=== PATIENT | female | born 1955 | race Caucasian/White ===

== ENCOUNTER 2017-01-14 16:26 | Inpatient (IN) | payer MEDICARE, OTHER ==
--- NOTE | ~2017-01-14 | HP ---
History And Physical [place] [id number] [place] [place]. [address] NAME: HA MAGUIRE : 59 STATUS : ADM IN [facility]#: [id number] AGE: 61 ADM/REG DATE : 01/14/17 MR#: [id number] REPORT SERV DATE: 01/15/17 DICTATED BY: FRANKIE PIPER DATE: 01/14/17 REPORT STATUS : Draft TRANSCRIBED BY: MODL DATE: 01/14/17 DATE OF ADMISSION: 01/14/2017 REASON FOR ADMISSION: Recent bleeding from right upper extremity AV graft today at dialysis and was unable to dialyze with leukocytosis from recent right lower extremity alaww-pzk-oser amputation stump infection. HISTORY OF PRESENT ILLNESS: Ha Maguire is a massively obese, chronically ill, 61-year-old female with multiple medical problems, in very poor health with very poor prognosis. She has been residing at the [facility] where she has been receiving dialysis via a right upper extremity AV graft. She had a right lower extremity above the knee amputation in December and had a postoperative stump infection. She was seen by Infectious Disease and was treated with seven days of meropenem as she had ESBL E. coli in the cultures. She was treated with a VAC pack by Surgery and sent to [facility]. Today, when she was attempting to dialyze, she had increased bleeding around the needles in her right upper extremity AV graft and they were unable to dialyze her there. She was sent to the emergency room here at [facility] where she is sedated, but able to answer questions. She denies any shortness of breath, chest pain, or abdominal pain. She has not had any access pain in her arm, but she has massive edema in her right upper extremity. She has been requiring blood transfusions of late because of persistent anemia. The patient has a VAC in her right lower extremity stump and it is tender to palpate. Her white blood cell count is 17. We have been asked to admit her because she is a dialysis patient. PAST MEDICAL HISTORY: 1. End-stage renal disease with right upper extremity AV graft. 2. Peripheral vascular disease, status post bilateral lower extremity vgark-whb-undt amputation. 3. Recent right lower extremity qbpbd-orl-tkxp amputation stump infection, treated with meropenem for seven days per Infectious Disease and has a VAC pack. 4. Chronic hypotension, on midodrine. 5. Morbid obesity with very poor health. 6. Chronic edema. 7. History of left femur fracture. 8. Longstanding type 2 diabetes mellitus, on insulin with diabetic neuropathy. 9. Obstructive sleep apnea. 10.Hypothyroidism. 11.Chronic pain syndrome with anxiety, on narcotics and benzodiazepines. 12.Right upper extremity fracture, status post surgery. 13.Finger amputations. 14.Previous history of C4 fracture, treated with a C-collar. 15.Previous history of subdural hemorrhage. 16.Gastroesophageal reflux disease. 17.Diabetic foot ulcers previously. 18.Hyperlipidemia. 19.Anemia requiring frequent transfusions of late. History And Physical [address] [address] NAME: HA MAGUIRE : 59 STATUS : ADM IN [facility]#: [id number] AGE: 61 ADM/REG DATE : 01/14/17 MR#: [id number] REPORT SERV DATE: 01/15/17 DICTATED BY: FRANKIE PIPER DATE: 01/14/17 REPORT STATUS : Draft TRANSCRIBED BY: ALEXIA DATE: 01/14/17 ALLERGIES: INCLUDE LISINOPRIL. SOCIAL HISTORY: She lives at [facility]. She does not smoke or drink. She is a full code. FAMILY HISTORY: Significant for diabetes and coronary artery disease. MEDICATIONS: At the [facility] include: 1. Alprazolam 1 mg each day. 2. Dulcolax 5 mg each day. 3. Vitamin D 5000 units each day. 4. Colace 100 mg twice a day. 5. Humalog insulin sliding scale. 6. Levothyroxine 200 mcg p.o. daily. 7. Nephro-Jason one p.o. daily. 8. Pantoprazole 40 mg p.o. b.i.d. 9. Sertraline 25 mg a day. 10.Zoloft 100 mg a day. 11.Midodrine 5 mg three times a day. 12.Oxycodone 40 mg long-acting once a day. 13.Ambien 5 mg at bedtime. 14.Amitiza 24 mcg p.o. twice a day. 15.Lactulose 30 mL as p.o. daily. 16.Gabapentin 300 mg twice a day. 17.Alprazolam 1 mg at bedtime. REVIEW OF SYSTEMS: All systems reviewed are negative except what is mentioned in the history of present illness, but history is limited due to her sedation. PHYSICAL EXAMINATION: VITAL SIGNS: Currently upon examination, she is afebrile, blood pressure 99/43, pulse 88, and respiratory rate 15. It should to be noted that she has chronic hypotension and [facility]. GENERAL: On examination, generally, she is massively obese, chronically ill, in no acute distress. HEENT: Eyes, pupils react bilaterally. No conjunctivitis. Oropharynx, mucous membranes are dry. She has no lesions. NECK: Supple. No thyromegaly. No mass. No meningeal signs. LYMPHADENOPATHY: No cervical, supraclavicular, or axillary lymphadenopathy. LUNGS: Clear to auscultation. No tachypnea. CARDIOVASCULAR: Regular rate and rhythm with a 2/6 systolic ejection murmur. No rub. She has 4+ edema to her right upper extremity. GASTROINTESTINAL: Positive bowel sounds. Morbidly obese. Nontender and nondistended with no hepatosplenomegaly. SKIN: She has chronic edema to the right upper extremity with chronic changes of edema. History And Physical [address] [place]. [address] NAME: HA MAGUIRE : 59 STATUS : ADM IN [facility]#: [id number] AGE: 61 ADM/REG DATE : 01/14/17 MR#: [id number] REPORT SERV DATE: 01/15/17 DICTATED BY: FRANKIE PIPER DATE: 01/14/17 REPORT STATUS : Draft TRANSCRIBED BY: ALEXIA DATE: 01/14/17 She has a right upper extremity AV graft with positive thrill and bruit. She has a VAC pack on her right lower extremity stump that is tender to palpate. PSYCHIATRIC: Her speech is soft. She is lethargic, but able to answer questions. She knows she is in the hospital. She knows the year. She knows her name. She can follow commands and squeeze to command. NEUROLOGIC: Cranial II through XII are intact. Sensation is grossly intact. DIAGNOSTIC DATA: Chest x-ray reviewed by me shows a left pleural effusion per my interpretation, reviewed by me. Her ABG; pH 7.44, pCO2 of 44, and PO2 of 59. Sodium 135, potassium 3.1, chloride 95, bicarb 31, BUN 21, creatinine 2.6, glucose 178, calcium 7.7, total protein 6.5, albumin 1.5, total bilirubin 2.5, alkaline phosphatase 147, ALT 11, and AST 12. Troponin less than 0.02. Acetaminophen level is less than 2. Salicylate level is 2.9. Beta natriuretic peptide 145. Lactate level is pending. White count 17, hemoglobin 7.8, hematocrit 24, and platelets 250. Blood cultures x2 have been drawn. INR 1.4. IMPRESSION: 1. Bleeding from right upper extremity AV graft today at dialysis. She has massive edema in the right upper extremity, appears to be a chronic problem. 2. Leukocytosis from right lower extremity strws-ozo-kcag amputation recently with recent stump infection, treated with meropenem per Infectious Disease recommendations with extended-spectrum beta-lactamases Escherichia coli at that time in cultures. 3. Severe hypoalbuminemia with albumin of 1.5. 4. Type 2 diabetes mellitus with complications of neuropathy, on insulin. 5. Chronic hypotension, on midodrine. 6. End-stage renal disease. 7. Anemia, requiring frequent blood transfusions. 8. Elevated total bilirubin, question cause. 9. Chronic pain and anxiety, on narcotics and benzodiazepines, and she is sedated now. PLAN AND RECOMMENDATION: 1. She is a full admit. 2. Check blood cultures, given empiric vancomycin and meropenem. 3. Infectious Disease evaluation with Dr. Sheridan. 4. Surgical evaluation of the right stump with Dr. Mujica. 5. Vascular Surgery evaluation with Dr. Hernandez for right upper extremity AV graft. 6. There is no need for dialysis tonight. 7. Accu-Cheks with insulin. 8. Hold narcotics and benzodiazepines with sedation. Her pCO2 is 44 on ABG. 9. Check abdominal ultrasound, haptoglobin and LDH with recent elevated total bilirubin. 10.Schedule midodrine 10 mg t.i.d. 11.She is a full admit. 12.She is chronically ill, in very poor health with long-term very poor prognosis. BH/MODL History And Physical [address] [place] [address] NAME: HA MAGUIRE : 59 STATUS : ADM IN PAT#: [id number] AGE: 61 ADM/REG DATE : 01/14/17 MR#: [id number] REPORT SERV DATE: 01/15/17 DICTATED BY: FRANKIE PIPER DATE: 01/14/17 REPORT STATUS : Draft TRANSCRIBED BY: MODL DATE: 01/14/17 Frankie Piper M.D. / [id number] CC: Kasi Dick M.D. Mandeep Grewal, M.D.
--- NOTE | ~2017-01-14 | CN ---
Consultation Report [facility] [address] [place]. [address] NAME: HA MAGUIRE : 59 STATUS : ADM IN PAT#: [id number] AGE: 61 ADM/REG DATE : 01/14/17 MR#: [id number] REPORT SERV DATE: 01/15/17 DICTATED BY: TONY HERNANDEZ DATE: 01/15/17 REPORT STATUS : Draft TRANSCRIBED BY: MODL DATE: 01/15/17 CONSULT DATE OF CONSULTATION: 01/14/2017 REASON FOR CONSULTATION: Evaluation for prolonged bleeding from right upper extremity AV fistula. BRIEF HISTORY: The patient is a 61-year-old female with past medical history significant for end-stage renal disease and morbid obesity, who has had several dialysis access procedures in the remote past. She has had multiple interventions by my partners, the nephrologists, and Dr. Villar. I was consulted for evaluation and treatment, as the patient came to the hospital with prolonged bleeding from her right upper extremity fistula. The patient describes a prolonged history of right upper extremity edema. She has had prolonged bleeding in the past. She has had interventions with Dr. Nur, the last of which was reportedly unsuccessful. She says that there was a blockage more centrally and there was some discussion as to whether she would need a transfemoral access to cross this lesion. The patient denies any other complaints. She was recently hospitalized for a right above- the-knee amputation stump infection. PAST MEDICAL HISTORY: End-stage renal disease, peripheral vascular disease, morbid obesity, chronic hypotension, left femur fracture, diabetes, obstructive sleep apnea, hypothyroidism, chronic pain, subdural hemorrhage, gastroesophageal reflux disease, hyperlipidemia, and anemia. PAST SURGICAL HISTORY: Includes right ljocu-iit-dmot amputation. She has had several finger amputations on her left hand. She has had multiple dialysis access procedures. SOCIAL HISTORY: She lives in [facility]. She denies any tobacco, alcohol, or drug use. ALLERGIES: LISINOPRIL. MEDICATIONS: Documented on the chart and were reviewed. FAMILY HISTORY: Diabetes and coronary artery disease. REVIEW OF SYSTEMS: A complete review of systems was performed and is negative with the exception of the aforementioned findings. PHYSICAL EXAMINATION: VITAL SIGNS: Documented on the chart and were reviewed. GENERAL: The patient is awake, alert, and oriented, in no apparent distress. HEAD AND NECK: Benign without any carotid bruits. Consultation Report [facility] [address] [place]. [address] NAME: HA MAGUIRE : 59 STATUS : ADM IN PAT#: [id number] AGE: 61 ADM/REG DATE : 01/14/17 MR#: [id number] REPORT SERV DATE: 01/15/17 DICTATED BY: TONY HERNANDEZ DATE: 01/15/17 REPORT STATUS : Draft TRANSCRIBED BY: MODL DATE: 01/15/17 HEART: Regular rate and rhythm. LUNGS: Coarse. ABDOMEN: Soft, nontender, nondistended, with a nonpalpable aorta. She is morbidly obese. EXTREMITIES: I am not sure that I can feel upper extremity pulses. She has morbid obesity with significant right upper extremity edema. She does not have any weeping. I think I can feel a thrill within her fistula. There is no active bleeding. Examination of the lower extremities reveals palpable femoral pulses. She has right uskqg-yyh-nhjl amputation stump. Her left lower extremity is edematous. NEUROLOGICAL: Grossly nonfocal, but she is somewhat somnolent. MUSCULOSKELETAL: Otherwise benign. LABORATORY INVESTIGATIONS: Reveal leukocytosis. She also has anemia. Her serum chemistry is consistent with her renal failure. ASSESSMENT AND PLAN: It looks like this lady has had a history of prolonged bleeding and she says a more central stenosis. She will need a fistulogram with possible intervention. We may have to use a transfemoral approach. I would like to avoid placing a PermCath. Once we get an idea of what her anatomy is, if we cannot fix it, we could potentially convert this access to a hybrid AV fistula and graft using a HeRO graft. The patient and her expressed understanding. We are getting this scheduled. CELESTE/ALEXIA Tony Hernandez M.D. / [id number] CC: Kasi Dick M.D.
--- NOTE | ~2017-01-14 | DS ---
Discharge Summary [facility] [address] [place]. [address] NAME: HA MAGUIRE : 59 STATUS : DIS IN PAT#: [id number] AGE: 61 ADM/REG DATE : 01/14/17 MR#: [id number] REPORT SERV DATE: 01/19/17 DICTATED BY: DAWIT SIMON DATE: 01/18/17 REPORT STATUS : Draft TRANSCRIBED BY: MODL DATE: 01/18/17 ADMISSION DATE: 01/14/2017 DISCHARGE DATE: 01/18/2017 INDICATION FOR HOSPITALIZATION: Bleeding from right upper extremity AV graft with leukocytosis from recent right lower extremity above knee amputation. DISCHARGE DIAGNOSES: 1. Bleeding from right upper extremity AV graft, status post fistulogram with angioplasty of right axillary vein, right subclavian vein, and right innominate vein by Dr. Hernandez on 11/19/2016. 2. Leukocytosis, evaluated by ID, no missael evidence of stump infection. Per surgeon Dr. Mujica, antibiotics discontinued after initial dosing with meropenem and vancomycin on 01/17/2017. She continues with wound VAC. 3. Chronic hypotension, on midodrine. 4. Peripheral vascular disease, status post bilateral lower extremity above knee amputations. 5. End-stage renal disease, dialyzing Saturday, Saturday, Saturday at [facility] via right upper extremity AV graft. 6. History of left femur fracture. 7. Long-standing type 2 diabetes mellitus. 8. Obstructive sleep apnea. 9. Hypothyroidism. 10.Chronic pain syndrome with anxiety requiring narcotics and benzodiazepines. 11.Right upper extremity fracture, status post surgery. 12.Digital amputations of fingers. 13.History of C4 fracture treated with C-collar. 14.Previous history of subdural hematoma. 15.Gastroesophageal reflux disease. 16.Hyperlipidemia. 17.Anemia, requiring frequent transfusions. HOSPITAL COURSE: Ms. Maguire is a 61-year-old female who resides at [facility] and actually dialyzes at [facility] nursing facility. She apparently had a recent right lower extremity AKA in December and there was a postop wound infection that is being followed in the past by infectious Disease and Dr. Mjuica of Surgery. She was admitted with Vac-Pac by Surgery. When attempting to dialyze, she had increased bleeding around the needles of her right upper extremity graft and they were unable to dialyze her. She was sent to the emergency room for admission. She was found to be sedated and unable to answer questions except that she was not short of breath, had no chest or abdominal pain. She has required multiple transfusions of late due to anemia. The patient was seen by Vascular Surgery and Dr. Hernandez performed a fistulogram of right upper extremity AV graft on 01/15/2017 with angioplasty of right axillary, right subclavian, right innominate veins. There was no additional bleeding post intervention. She was seen by Dr. Mujica and Vac-Pac was followed by him. In addition, she was seen by Infectious Discharge Summary [address] [place]. [address] NAME: HA MAGUIRE : 59 STATUS : DIS IN PAT#: [id number] AGE: 61 ADM/REG DATE : 01/14/17 MR#: [id number] REPORT SERV DATE: 01/19/17 DICTATED BY: DAWIT SIMON DATE: 01/18/17 REPORT STATUS : Draft TRANSCRIBED BY: ALEXIA DATE: 01/18/17 Disease, and upon reviewing the situation with Dr. Mujica and assessing clinical response, both vancomycin and meropenem were discontinued on 01/17/2017. She was felt stable for release back to [facility]. During the hospitalization, she was dialyzed on 01/16/2017, where she received 2 units of packed red blood cells for a hemoglobin of 6.7, and she was dialyzed again on 01/18/2017 with a hemoglobin of 9.1 at time of dialysis. She tolerated dialysis well and was eager to return. She will follow up on dialysis at [facility] as scheduled. She will follow up with Surgery and Infectious Disease as scheduled. She will follow up with Vascular Surgery as scheduled. DIET: Diet will be renal diet 2000 calorie ADA, 500 mL fluid restriction per day. ACTIVITY: Activity will be per [facility]. DISCHARGE MEDICATIONS: Dulcolax 5 mg two tablets twice daily; Colace 100 mg twice daily; insulin NovoLog sliding scale level 1, blood sugar 140-175 one unit, 176-200 two units, 201- 225 three units, 226-275 four units, 276-325 five units, 326-375 six units; lactulose 30 mL p.o. daily; Synthroid 100 mg two tablets before breakfast; Nephrocaps one daily; Protonix 40 mg before breakfast; Zoloft 100 mg daily; Xanax 1 mg twice daily p.r.n., hold for sedation; vitamin D 5000 units p.o. daily; OxyContin 40 mg extended release one tablet daily, hold for sedation; midodrine 10 mg p.o. t.i.d., hold for systolic greater than 155; Ambien 5 mg at bedtime; Neurontin 300 mg twice daily, hold for sedation; and oxycodone 15 mg 7.5 mg tablet q.12 p.r.n., hold for sedation. CADENCE/MODL Dawit Simon M.D. / [id number] CC: Kasi Dick MD
--- NOTE | ~2017-01-14 | OP ---
Record Of Operation [facility] [address] [place]. [address] NAME: HA MAGUIRE : 59 STATUS : ADM IN PAT#: [id number] AGE: 61 ADM/REG DATE : 01/14/17 MR#: [id number] REPORT SERV DATE: 01/15/17 DICTATED BY: TONY HERNANDEZ DATE: 01/15/17 REPORT STATUS : Draft TRANSCRIBED BY: MODJesse DATE: 01/15/17 DATE OF PROCEDURE: 01/15/2017 PREOPERATIVE DIAGNOSIS: 1. End-stage renal disease. 2. Right upper extremity edema. 3. Prolonged bleeding from the AV fistula. POSTOPERATIVE DIAGNOSES: 1. End-stage renal disease. 2. Right upper extremity edema. 3. Prolonged bleeding from the AV fistula. PROCEDURE: Right upper extremity fistulogram with percutaneous angioplasty of the right axillary vein, subclavian vein, and innominate vein. SURGEON: Tony Hernandez M.D. TOP TAPER MACHINE: None. ANESTHESIA: MAC plus local. INDICATIONS: The patient is a 61-year-old morbidly obese female with renal failure. She has had multiple interventions on her right upper extremity arteriovenous fistula. Now, she presents with prolonged bleeding and right upper extremity edema. Thus, she was consented for intervention. DESCRIPTION OF PROCEDURE: After informed consent was obtained, the patient was taken to the operating room and placed in the supine position on the operating table. Monitored anesthesia was administered. The patient's right upper extremity as well as groins were prepped and draped in the usual sterile fashion. Ultrasound-guided access was obtained of the right upper extremity AV fistula in an antegrade fashion. I obtained a fistulogram that demonstrated occlusion of the right axillary vein, subclavian vein, and innominate vein. More central flow was not visualized. I placed a sheath and crossed the occlusion. I obtained an angiogram with the catheter in the right innominate vein. This showed that the SVC was patent. I angioplastied the right axillary, subclavian, and innominate veins with a 6 mm balloon. While there was improvement, the balloon was clearly undersized. I used a 10 mm balloon to angioplasty the same regions. There was marked improvement with the exception of a spot just peripheral to a stent that was placed extending from the right subclavian vein into the innominate vein. Of note, this stent had jailed the right internal jugular vein. I used an 8 mm cutting balloon to angioplasty this region. I repeated angioplasty with a 10 mm balloon. There was improvement. There was still some residual stenosis, perhaps about 30%. I did not think that this spot was best served with the stent at this point. Thus, I withdrew my wire, catheter, and sheath and placed a stitch for hemostasis. The patient tolerated the procedure well without any intraprocedural complications. Record Of Operation [place] [id number] [facility] [address] [place] [address] NAME: HA MAGUIRE : 59 STATUS : ADM IN [facility]#: [id number] AGE: 61 ADM/REG DATE : 01/14/17 MR#: [id number] REPORT SERV DATE: 01/15/17 DICTATED BY: TONY HERNANDEZ DATE: 01/15/17 REPORT STATUS : Draft TRANSCRIBED BY: ALEXIA DATE: 01/15/17 CELESTE/ALEXIA Tony Hernandez M.D. / [id number] CC: Kasi Dick M.D.
[~2017-01-14 16:26] MED LIST: AMB10 PO; AMB5 PO; AMOXIL500 MG PO; ANTIBIOTICS; ARANESP60 IV; ASAB PO; ASABAYER PO; AURYXIA PO; BIST PO; BUM1 PO; COREG6 PO; D 5000 PO; DSS PO; HUMALOG SC; HUMALOGPEN SC; HYDRALAZINE100 MG PO; IRON325 MG PO; K-PHOS 500 MG500 MG PO; LANTUS SC; LEVEMFLXPN SC; LEVEMIR SC; LEVOTHYROXIN200 MCG PO; LORTAB10 PO; MICARDIS80 PO; NEPHRO-VITE PO; NEUR100 PO; NEUR300 PO; NORCO1 TAB PO; NORV10 PO; NORV5 PO; OXYCOD PO; OXYCON40 PO; PAX20 PO; PHOSLO PO; PR12.5 PO; PROAMAT5 PO; PROTONIX PO; RENAL SFTGLS1 MG OR; RENAL SFTGLS1 MG PO; RENVELA800 MG PO; REQUIP1 PO; ROXICODONE15 MG PO; SANTYL250 MG/GM TOP; SAVELLA50 MG PO; SEVELLA PO; SYNTHROID200 MCG PO; TORSEMIDE PO; VITAMIN C100 MG PO; VITAMIN D31000 UNIT PO; XANAX1 MG PO; Z100 PO; ZANTAC150 MG PO; ZOLOFT25 MG PO
[2017-01-14 16:31] LABS: BASOPHILS 0.4 %; BASOPHILS ABSOLUTE 0.07 10/3/uL (0.0-0.16); EOSINOPHILS 0.9 %; EOSINOPHILS ABSOLUTE 0.16 10/3/uL (0.0-0.53); ER CBC TAT 0 Hrs 03 Mins; HEMATOCRIT 24.7 % (36.0-48.0); HEMOGLOBIN 7.8 g/dL (12.0-16.0); IMMATURE GRANULOCYTES 0.5 %; IMMATURE GRANULOCYTES ABSOLUTE 0.09 10/3/uL (0.0-0.11); LYMPHOCYTES 5.9 %; LYMPHOCYTES ABSOLUTE 1.02 10/3/uL (0.67-4.30); MEAN CORPUS HGB CONC 31.6 g/dL (32.0-36.0); MEAN PLATELET VOLUME 8.4 fL (9.2-13.0); MONOCYTES 2.9 %; MONOCYTES ABSOLUTE 0.51 10/3/uL (0.21-1.20); NEUTROPHILS 89.4 %; NEUTROPHILS ABSOLUTE 15.53 10/3/uL (2.02-8.40); PLATELET COUNT 250 10/3/uL (150-400); RBC DISTRIBUTION WIDTH 22.7 % (12.0-16.0); RED CELL COUNT 2.52 10/6/uL (4.0-5.6); WHITE BLOOD CELLS 17.4 10/3/uL (4.5-10.5)
[2017-01-14 16:33] LABS: MANUAL DIFF NO %
[2017-01-14 16:38] LABS: INTERNATIONAL NORMAL RATI 1.4 UNITS (-); PROTIME (NOT ORD) 17.1 SEC (12.0-14.5)
[2017-01-14 16:39] LABS: PARTIAL THROMBO TIME 50.1 SEC (22.5-37.2)
[2017-01-14 16:47] LABS: A/G RATIO 0.3 (0.7-1.9); ACETAMINOPHEN LEVEL (TYLENOL) < 2.0 MCG/ML (10.0-20.0); ALBUMIN 1.5 G/DL (3.5-5.0); ALCOHOL < 10 MG/DL (0); ALKALINE PHOSPHATASE 147 U/L (45-117); BUN (BLOOD UREA NITROGEN) 21 MG/DL (6-23); CALCIUM, SERUM 7.7 MG/DL (8.5-10.4); CHLORIDE, SERUM 95 MMOL/L (96-112); CO2 (CARBON DIOXIDE) 31 MMOL/L (24-34); CREATININE 2.62 MG/DL (0.55-1.02); GFR AFRICAN AMERICAN 22 ML/MIN (>=60); GFR NON AFRICAN AMERICAN 19 ML/MIN (>=60); GLUCOSE, SERUM 178 MG/DL (60-99); POTASSIUM, SERUM 3.1 MMOL/L (3.5-5.3); SALICYLATE 2.9 MG/DL (-); SGOT(AST) 12 U/L (5-40); SGPT(ALT) 11 U/L (5-65); SODIUM, SERUM 135 MMOL/L (135-148); TOTAL BILIRUBIN 2.5 MG/DL (0-1.2); TOTAL PROTEIN 6.5 G/DL (6.0-8.5); TROPONIN I <0.02 NG/ML (<0.05)
[2017-01-14] MEDS ORDERED: D 5000 PO (16:57)
[2017-01-14] MEDS ORDERED: XANAX1 MG PO (16:57)
[2017-01-14] MEDS ORDERED: BIST PO (16:57)
[2017-01-14] MEDS ORDERED: DSS PO (16:58)
[2017-01-14] MEDS ORDERED: LEVOTHYROXIN200 MCG PO (16:58)
[2017-01-14] MEDS ORDERED: HUMALOG SC (16:58)
[2017-01-14] MEDS ORDERED: NEPHRO-VITE PO (16:58)
[2017-01-14] MEDS ORDERED: PROTONIX PO (16:59)
[2017-01-14] MEDS ORDERED: ZOLOFT25 MG PO (16:59)
[2017-01-14] MEDS ORDERED: PROAMAT5 PO (16:59)
[2017-01-14] MEDS ORDERED: OXYCON40 PO (17:00)
[2017-01-14 17:02] LABS: MACROCYTES 1+ (5-10/OIF) (0-5/OIF); PLATELET ESTIMATE ADQ (ADEQUATE)
[2017-01-14] MEDS ORDERED: GENERLAC PO (17:02)
[2017-01-14] MEDS ORDERED: AMITIZA24 PO (17:02)
[2017-01-14] MEDS ORDERED: ZOL100 PO (17:02)
[2017-01-14] MEDS ORDERED: AMB5 PO (17:02)
[2017-01-14] MEDS ORDERED: NEUR300 PO (17:03)
[2017-01-14] MEDS ORDERED: ROXICODONE15 MG PO (17:04)
[2017-01-14 17:35] LABS: ALLENS TEST Pos; BE (BASE EXCESS) 6.1 MEQ/L (0 +/- 2.5); HCO3 (ACTUAL BICARBONATE) 30.6 MEQ/L (23-27); HEMOBLOGIN CONTENT 7.7 G/DL (12-16); INSTRUMENT SERIAL # 8087; METHEMOGLOBIN 0.3 % (0-3); O2 CONTENT 9.5 VOL% (18-24); OPERATOR ID 14335; PCO2 (CO2 TENSION) 45 MMHG (35-45); PO2 (O2 TENSION) 59 MMHG (79-93); SAMPLE Arterial; pH 7.46 (7.37-7.43)
[2017-01-14 19:51] LABS: PROCALCITONIN 2.34 ng/mL (<0.5)
[2017-01-14 22:58] LABS: LACTATE 1.4 MMOL/L (0.3-2.4)
[2017-01-15 07:39] LABS: A/G RATIO 0.3 (0.7-1.9); ALBUMIN 1.2 G/DL (3.5-5.0); CALCIUM, SERUM 7.3 MG/DL (8.5-10.4); CHLORIDE, SERUM 97 MMOL/L (96-112); CO2 (CARBON DIOXIDE) 30 MMOL/L (24-34); CREATININE 2.94 MG/DL (0.55-1.02); FERRITIN 2103 NG/ML (8-252); GFR AFRICAN AMERICAN 19 ML/MIN (>=60); GFR NON AFRICAN AMERICAN 17 ML/MIN (>=60); GLOBULIN 4.2 G/DL (2.5-4.1); GLUCOSE, SERUM 154 MG/DL (60-99); IRON BINDING CAPACITY 59 MCG/DL (225-410); IRON, SERUM 35 MCG/DL (35-150); SGOT(AST) 14 U/L (5-40); SGPT(ALT) 7 U/L (5-65); SODIUM, SERUM 136 MMOL/L (135-148); TOTAL PROTEIN 5.4 G/DL (6.0-8.5)
[2017-01-15 07:40] LABS: ALKALINE PHOSPHATASE 127 U/L (45-117); BUN (BLOOD UREA NITROGEN) 26 MG/DL (6-23); FOLATE 11.2 NG/ML (>5.2); PHOSPHORUS, SERUM 2.9 MG/DL (2.5-4.5); TOTAL BILIRUBIN 1.9 MG/DL (0-1.2); ULTRASENSITIVE TSH 0.328 MCIU/ML (0.358-3.740)
[2017-01-15 18:27] LABS: BASOPHILS 0.4 %; BASOPHILS ABSOLUTE 0.05 10/3/uL (0.0-0.16); EOSINOPHILS 0.9 %; EOSINOPHILS ABSOLUTE 0.13 10/3/uL (0.0-0.53); IMMATURE GRANULOCYTES 0.6 %; IMMATURE GRANULOCYTES ABSOLUTE 0.08 10/3/uL (0.0-0.11); LYMPHOCYTES 7.8 %; LYMPHOCYTES ABSOLUTE 1.07 10/3/uL (0.67-4.30); MEAN CORPUS HGB CONC 32.1 g/dL (32.0-36.0); MEAN CORPUSCULAR VOLUME 99.5 fL (80-100); MEAN PLATELET VOLUME 8.8 fL (9.2-13.0); MONOCYTES 2.1 %; MONOCYTES ABSOLUTE 0.29 10/3/uL (0.21-1.20); NEUTROPHILS 88.2 %; NEUTROPHILS ABSOLUTE 12.15 10/3/uL (2.02-8.40); PLATELET COUNT 207 10/3/uL (150-400); RBC DISTRIBUTION WIDTH 22.4 % (12.0-16.0); WHITE BLOOD CELLS 13.8 10/3/uL (4.5-10.5)
[2017-01-15 18:28] LABS: HEMATOCRIT 19.3 % (36.0-48.0); HEMOGLOBIN 6.2 g/dL (12.0-16.0); RED CELL COUNT 1.94 10/6/uL (4.0-5.6)
[2017-01-15 18:32] LABS: MANUAL DIFF NO %
[2017-01-15 18:47] LABS: PLATELET ESTIMATE ADQ (ADEQUATE); POLYCHROMASIA 1+ (2-5/OIF) (0-1/OIF)
[2017-01-15 18:48] LABS: CALCIUM, SERUM 7.3 MG/DL (8.5-10.4); CHLORIDE, SERUM 102 MMOL/L (96-112); CO2 (CARBON DIOXIDE) 29 MMOL/L (24-34); GLUCOSE, SERUM 158 MG/DL (60-99); MACROCYTES 1+ (5-10/OIF) (0-5/OIF); POTASSIUM, SERUM 3.3 MMOL/L (3.5-5.3); SODIUM, SERUM 139 MMOL/L (135-148)
[2017-01-15 18:50] LABS: ALBUMIN 1.8 G/DL (3.5-5.0); BUN (BLOOD UREA NITROGEN) 12 MG/DL (6-23); CREATININE 1.71 MG/DL (0.55-1.02); GFR AFRICAN AMERICAN 37 ML/MIN (>=60); GFR NON AFRICAN AMERICAN 32 ML/MIN (>=60); PHOSPHORUS, SERUM 1.3 MG/DL (2.5-4.5)
[2017-01-16 07:20] LABS: BASOPHILS 0.9 %; EOSINOPHILS 1.8 %; IMMATURE GRANULOCYTES 0.5 %; IMMATURE GRANULOCYTES ABSOLUTE 0.06 10/3/uL (0.0-0.11); LYMPHOCYTES 14.1 %; LYMPHOCYTES ABSOLUTE 1.61 10/3/uL (0.67-4.30); MEAN CORPUS HGB CONC 32.2 g/dL (32.0-36.0); MEAN PLATELET VOLUME 8.6 fL (9.2-13.0); MONOCYTES 3.6 %; MONOCYTES ABSOLUTE 0.41 10/3/uL (0.21-1.20); NEUTROPHILS 79.1 %; PLATELET COUNT 201 10/3/uL (150-400); RBC DISTRIBUTION WIDTH 22.8 % (12.0-16.0); RED CELL COUNT 2.16 10/6/uL (4.0-5.6); WHITE BLOOD CELLS 11.4 10/3/uL (4.5-10.5)
[2017-01-16 07:22] LABS: HEMATOCRIT 20.8 % (36.0-48.0); HEMOGLOBIN 6.7 g/dL (12.0-16.0); MANUAL DIFF NO %; MEAN CORPUSCULAR VOLUME 96.3 fL (80-100)
[2017-01-16 07:39] LABS: ALBUMIN 1.7 G/DL (3.5-5.0); BUN (BLOOD UREA NITROGEN) 15 MG/DL (6-23); CALCIUM, SERUM 7.4 MG/DL (8.5-10.4); CHLORIDE, SERUM 99 MMOL/L (96-112); CO2 (CARBON DIOXIDE) 29 MMOL/L (24-34); CREATININE 2.09 MG/DL (0.55-1.02); GFR AFRICAN AMERICAN 29 ML/MIN (>=60); GFR NON AFRICAN AMERICAN 25 ML/MIN (>=60); GLUCOSE, SERUM 107 MG/DL (60-99); PHOSPHORUS, SERUM 1.2 MG/DL (2.5-4.5); POTASSIUM, SERUM 3.1 MMOL/L (3.5-5.3); SODIUM, SERUM 135 MMOL/L (135-148)
[2017-01-16 07:45] LABS: HYPOCHROMIA 1+ (3-10/OIF) (0-2/OIF); MACROCYTES 1+ (5-10/OIF) (0-5/OIF); MICROCYTES 1+ (5-10/OIF) (0-5/OIF); PLATELET ESTIMATE ADQ (ADEQUATE)
[2017-01-18 08:12] LABS: BASOPHILS 1.3 %; EOSINOPHILS 4.1 %; EOSINOPHILS ABSOLUTE 0.33 10/3/uL (0.0-0.53); IMMATURE GRANULOCYTES 1.4 %; IMMATURE GRANULOCYTES ABSOLUTE 0.11 10/3/uL (0.0-0.11); LYMPHOCYTES 21.8 %; LYMPHOCYTES ABSOLUTE 1.74 10/3/uL (0.67-4.30); MEAN CORPUSCULAR HEMOGLOB 31.3 pg (26.0-34.0); MEAN CORPUSCULAR VOLUME 94.8 fL (80-100); MEAN PLATELET VOLUME 8.5 fL (9.2-13.0); MONOCYTES 4.5 %; MONOCYTES ABSOLUTE 0.36 10/3/uL (0.21-1.20); NEUTROPHILS 66.9 %; NEUTROPHILS ABSOLUTE 5.35 10/3/uL (2.02-8.40); PLATELET COUNT 196 10/3/uL (150-400); RBC DISTRIBUTION WIDTH 21.1 % (12.0-16.0)
[2017-01-18 08:13] LABS: HEMATOCRIT 27.6 % (36.0-48.0); HEMOGLOBIN 9.1 g/dL (12.0-16.0); MANUAL DIFF NO %; RED CELL COUNT 2.91 10/6/uL (4.0-5.6)
[2017-01-18 08:23] LABS: ALBUMIN 1.5 G/DL (3.5-5.0); BUN (BLOOD UREA NITROGEN) 13 MG/DL (6-23); CALCIUM, SERUM 7.8 MG/DL (8.5-10.4); CHLORIDE, SERUM 102 MMOL/L (96-112); CO2 (CARBON DIOXIDE) 27 MMOL/L (24-34); CREATININE 2.27 MG/DL (0.55-1.02); GFR AFRICAN AMERICAN 27 ML/MIN (>=60); GFR NON AFRICAN AMERICAN 23 ML/MIN (>=60); GLUCOSE, SERUM 99 MG/DL (60-99); POTASSIUM, SERUM 3.1 MMOL/L (3.5-5.3); SODIUM, SERUM 139 MMOL/L (135-148)
[2017-01-18 08:25] LABS: PHOSPHORUS, SERUM 2.4 MG/DL (2.5-4.5)
== END 2017-01-18 14:45 | DRG 252 ==
LOC: ER 16:26 → 2SO 19:36
PROVIDERS: Emergency Medicine; Internal Medicine Nephrology; Registered Nurse; Surgery
PROC: B31H1ZZ Fluoroscopy of Right Upper Extremity Arteries using Low Osmolar Contrast (ICD-10-PCS; 2017-01-15)
PROC: 5A1D60Z (ICD-10-PCS; 2017-01-15)
PROC: 30283B1 Transfusion of Nonautologous 4-Factor Prothrombin Complex Concentrate into Vein, Percutaneous Approach (ICD-10-PCS; 2017-01-15)
PROC: 05773ZZ Dilation of Right Axillary Vein, Percutaneous Approach (ICD-10-PCS; principal; 2017-01-15 08:00)
PROC: 057Y3ZZ Dilation of Upper Vein, Percutaneous Approach (ICD-10-PCS; 2017-01-15 08:00)
DX: T82.838A Hemorrhage due to vascular prosthetic devices, implants and grafts, initial encounter (principal); N18.6 End stage renal disease; I95.89 Other hypotension; E11.22 Type 2 diabetes mellitus with diabetic chronic kidney disease; I12.0 Hypertensive chronic kidney disease with stage 5 chronic kidney disease or end stage renal disease; E88.09 Other disorders of plasma-protein metabolism, not elsewhere classified; E11.42 Type 2 diabetes mellitus with diabetic polyneuropathy; E11.65 Type 2 diabetes mellitus with hyperglycemia; D64.9 Anemia, unspecified; F41.9 Anxiety disorder, unspecified; G89.29 Other chronic pain; K21.9 Gastro-esophageal reflux disease without esophagitis; E78.5 Hyperlipidemia, unspecified; G47.33 Obstructive sleep apnea (adult) (pediatric); E66.09 Other obesity due to excess calories; E66.01 Morbid (severe) obesity due to excess calories; Z99.2 Dependence on renal dialysis; Z79.4 Long term (current) use of insulin; Z89.611 Acquired absence of right leg above knee; Z89.612 Acquired absence of left leg above knee
CPT/HCPCS: 36415; 36600; 36902; 71010; 76700; 80053; 80069; 80202; 80307; 82607; 82728; 82746; 82805; 82962; 83010; 83540; 83550; 83605; 83615; 83735; 83880; 84100; 84145; 84443; 84484; 85025; 85610; 85730; 86850; 86900; 86901; 86920; 87040; 94640; 99285; A9270-GY; C1725; C1769; C1894; G0257; J0690; J0692; J1170; J2185; J2250; J2270; J2405; J3010; J3370; P9016; P9045; P9047; Q9967

== ENCOUNTER 2017-02-06 17:52 | Inpatient (IN) | payer MEDICARE, OTHER ==
--- NOTE | ~2017-02-06 | HP ---
History And Physical [address] [place]. [address] NAME: HA MAGUIRE : 59 STATUS : ADM IN [facility]#: [id number] AGE: 61 ADM/REG DATE : 02/06/17 MR#: [id number] REPORT SERV DATE: 02/07/17 DICTATED BY: DATE: REPORT STATUS : Draft TRANSCRIBED BY: MODL DATE: 02/07/17 DATE OF ADMISSION: 02/06/2017 CHIEF COMPLAINT: Melena. HISTORY OF PRESENT ILLNESS: Ms. Maguire is an unfortunate 61-year-old white female with end- stage renal disease, morbid obesity, peripheral vascular disease, status post bilateral AKAs, multiple other medical problems. She is currently residing at [facility]. Nurses noted her to have melena and sent her to the emergency department. She states she has had some mild vague abdominal pain diffusely across the abdomen since Saturday. No fevers, chills. No diarrhea. She has chronic problems with nausea, vomiting. Here in the emergency department, she was found to have a heme-positive stool and given this, she was admitted for further evaluation. She has chronic problems with anemia and chronic problems with hypotension on midodrine and hemoglobin of 9.1. PAST MEDICAL HISTORY: End-stage renal disease, dialyzes at [facility]; morbid obesity; UTIs; peripheral vascular disease; status post bilateral AKA with recent right stump infection; left femur fracture; chronic hypotension; reflux; hyperlipidemia; cervical fracture; obstructive sleep apnea; chronic pain; anxiety; history of sleep apnea; hypothyroidism; and anemia. SOCIAL HISTORY: She is . Currently living at [facility]. No tobacco, alcohol, or illicit drug use. ALLERGIES: LISINOPRIL. FAMILY MEDICAL HISTORY: Diabetes and coronary artery disease. No end-stage renal disease. MEDICATIONS: At detention, Xanax, renal vitamin, Dulcolax, vitamin D, docusate, gabapentin, Humalog, lactulose, levothyroxine, midodrine, eyedrops, oxycodone, Protonix, Zoloft, K-Phos. REVIEW OF SYSTEMS: 12-point review of systems was obtained, negative with the exception of that in HPI. PHYSICAL EXAMINATION: VITAL SIGNS: Temperature 97.7, blood pressure 91/54, pulse 95, respiratory rate 16, O2 saturation is 96% on 2 L. GENERAL: This is a chronically ill-appearing, overweight white female. She is awake, alert, answers questions appropriately. HEENT: Normocephalic, atraumatic. Conjunctivae clear. Sclerae anicteric. Pupils are equal and round. Oral mucosa is very dry. NECK: Supple. No neck vein distention. RESPIRATIONS: Even and unlabored. Breath sounds clear to auscultation. HEART: Rate is regular. She has a 2/6 systolic ejection murmur. No rub or gallop. ABDOMEN: Obese, soft. No tenderness. Bowel sounds active. History And Physical [address] [place]. [address] NAME: HA MAGUIRE : [birth year] STATUS : ADM IN [facility]#: [id number] AGE: 61 ADM/REG DATE : 02/06/17 MR#: [id number] REPORT SERV DATE: 02/07/17 DICTATED BY: DATE: REPORT STATUS : Draft TRANSCRIBED BY: ALEXIA DATE: 02/07/17 BACK: Could not be examined. EXTREMITIES: She has trace edema to bilateral stumps with bandage in place to the right skin. No unusual rash or skin lesions. NEURO: Generalized weakness. No focal deficits. Mood and affect are flat, but appropriate. PERTINENT LABS AND X-RAYS: WBC 12, hemoglobin and hematocrit 9 and 27, and platelets 214,000. Sodium 137, potassium 3.1, chloride 99, CO2 29, BUN of 18, creatinine of 2.6, calcium of 7.3. IMPRESSION: 1. Melena, heme-positive stool. 2. Nausea and vomiting with abdominal pain. 3. End-stage renal disease. 4. Diabetes. 5. Peripheral vascular disease. 6. Chronic hypotension. PLAN: Admit for GI consult. Follow hemoglobin and hematocrit. Transfuse as needed. HD tomorrow. Usual medicines as appropriate. No DVT prophylaxis medically due to her melena, and she has bilateral AKAs, so she cannot wear SCDs. Further orders and recommendations pending clinical course. ARRON MICKI Macario / [id number] CC: Kasi Murguia MD
--- NOTE | ~2017-02-06 | EGD ---
EGD REPORT [facility] [address] [address] NAME: HA MAGUIRE : [birth year] STATUS : ADM IN PAT#: [id number] AGE: 61 ADM/REG DATE : 02/06/17 MR#: [id number] REPORT SERV DATE: 02/09/17 DICTATED BY: FLAVIO BURKS DATE: 02/09/17 REPORT STATUS : Draft TRANSCRIBED BY: [employer] DATE: 02/09/17 End[facility] Center Patient Name: Ha Maguire Date of : 1955 Attending MD: FLAVIO BURKS MD Procedure Date No Time: 02/09/2017 Procedure: Colonoscopy Indications: Heme positive stool, Melena Referring MD: KHUSHI PALMER Medicines: See the Anesthesia note for documentation of the administered medications Complications: No immediate complications. Procedure: Pre-Anesthesia Assessment: - ASA Grade Assessment: IV - A patient with severe systemic disease that is a constant threat to life. After I obtained informed consent, the scope was passed under direct vision. Throughout the procedure, the patient's blood pressure, pulse, and oxygen saturations were monitored continuously. The [id number] was introduced through the anus with the intention of advancing to the cecum. The scope was advanced to the descending colon before the procedure was aborted. Medications were given. The colonoscopy was performed without difficulty. The patient tolerated the procedure well. The quality of the bowel preparation was inadequate. Findings: The perianal and digital rectal examinations were normal. Internal hemorrhoids were found during retroflexion and were small. No bleeding. Yellow liquid stool. Dx with c dif overnight Impression: - Preparation of the colon was inadequate. - Internal hemorrhoids. - No bleeding. Yellow liquid stool. Dx with c dif overnight Recommendation: - Return patient to [facility] for [facility] care. - Consider outpatient colon at later date Procedure Code(s): --- Professional --- 59084, 53, Colonoscopy, flexible, proximal to splenic flexure; diagnostic, with or without collection of specimen(s) by brushing or washing, with or without colon decompression (separate procedure) EGD REPORT [facility] [address] [facility] [place]. [address] NAME: HA MAGUIRE : [birth year] STATUS : ADM IN [facility]#: [id number] AGE: 61 ADM/REG DATE : 02/06/17 MR#: [id number] REPORT SERV DATE: 02/09/17 DICTATED BY: FLAVIO BURKS DATE: 02/09/17 REPORT STATUS : Draft TRANSCRIBED BY: [employer] DATE: 02/09/17 Diagnosis Code(s): --- Professional --- K64.8, Other hemorrhoids R19.5, Other fecal abnormalities K92.1, Melena CPT copyright 2013 [employer]. All rights reserved. The codes documented in this report are preliminary and upon rn intern review may be revised to meet current compliance requirements. Flavio Burks MD FLAVIO BURKS MD 02/09/2017 8:53 AM This report has been signed electronically. Number of Addenda: 0 Note Initiated On: 02/09/2017 8:16 AM Scope Withdrawal Time 0 hours 0 minutes 0 seconds [address] [place] [address]
--- NOTE | ~2017-02-06 | EGD ---
EGD REPORT [facility] [address] [address] NAME: HA MAGUIRE : [birth year] STATUS : ADM IN PAT#: [id number] AGE: 61 ADM/REG DATE : 02/06/17 MR#: [id number] REPORT SERV DATE: 02/07/17 DICTATED BY: MICHA PARKINSON DATE: 02/07/17 REPORT STATUS : Draft TRANSCRIBED BY: [facility] DATE: 02/07/17 End[facility] Center Patient Name: Ha Maguire Date of : 1955 Attending MD: MICHA PARKINSON, Procedure Date No Time: 02/07/2017 Procedure: Upper GI endoscopy Indications: Melena Medicines: Monitored Anesthesia Care Complications: No immediate complications. Estimated blood loss: None. Procedure: After obtaining informed consent, the endoscope was passed under direct vision. Throughout the procedure, the patient's blood pressure, pulse, and oxygen saturations were monitored continuously. The GIF [id number] was introduced through the mouth, and advanced to the second part of duodenum. The upper GI endoscopy was accomplished without difficulty. The patient tolerated the procedure well. Findings: The esophagus was normal. Patchy moderate inflammation characterized by erosions and erythema was found in the entire examined stomach. Biopsies were taken with a cold forceps for histology. Verification of patient identification for the specimen was done. Estimated blood loss was minimal. The cardia and gastric fundus were normal on retroflexion. The examined duodenum was normal. Impression: - Normal esophagus. - Gastritis. Biopsied. - Normal examined duodenum. Recommendation: - Patient has a contact number available for emergencies. The signs and symptoms of potential delayed complications were discussed with the patient. Return to normal activities tomorrow. Written discharge instructions were provided to the patient. - Return to previous diet. - Await pathology results. - Continue present medications. - MRCP today Procedure Code(s): --- Professional --- 01498, Esophagogastroduodenoscopy, flexible, transoral; with biopsy, single or multiple EGD REPORT [facility] [address]. [address] NAME: HA MAGUIRE : [birth year] STATUS : ADM IN [facility]#: [id number] AGE: 61 ADM/REG DATE : 02/06/17 MR#: [id number] REPORT SERV DATE: 02/07/17 DICTATED BY: MICHA PARKINSON DATE: 02/07/17 REPORT STATUS : Draft TRANSCRIBED BY: [employer] DATE: 02/07/17 Diagnosis Code(s): --- Professional --- K29.70, Gastritis, unspecified, without bleeding K92.1, Melena CPT copyright 2013 [employer]. All rights reserved. The codes documented in this report are preliminary and upon water pollution specialist review may be revised to meet current compliance requirements. MICHA PARKINSON, 02/07/2017 3:59 PM Number of Addenda: 0 Note Initiated On: 02/07/2017 3:44 PM Scope Withdrawal Time 0 hours 0 minutes 0 seconds [address] [place] [address]
--- NOTE | ~2017-02-06 | CN ---
Consultation Report [facility] [address] [place]. [address] NAME: HA MAGUIRE : [birth year] STATUS : ADM IN PAT#: [id number] AGE: 61 ADM/REG DATE : 02/06/17 MR#: [id number] REPORT SERV DATE: 02/07/17 DICTATED BY: GAVIOTA GOLD DATE: 02/07/17 REPORT STATUS : Draft TRANSCRIBED BY: MODJesse DATE: 02/07/17 GI CONSULTATION DATE OF CONSULTATION: 02/07/2017 REASON FOR CONSULTATION: Evaluation and management of "melena, Hemoccult-positive stools." HISTORY OF PRESENT ILLNESS: Ms. Maguire is a 61-year-old, chronically ill-appearing, female, who presented to [facility] from [facility] with a chief complaint of dark, tarry stools. Symptom onset was yesterday the . The patient and the patient's state that recently she has been having issues with constipation and diarrhea. She is on three separate laxatives and stool softeners. She states that she roughly has 4 bowel movements a day. She has had some mild abdominal cramping that is relieved with diarrhea. It was reported that she had black stools yesterday. She has some chronic nausea with vomiting. She states that her last emesis was yellow in coloration. Secondary to the dark stools, she was sent in for further evaluation. I have seen the patient this morning. She presently has not had any more bowel movements since presenting to the hospital. Nausea and vomiting at present is controlled. I have discussed with her and the patient's who is present at the bedside. We will take her today for an EGD with Dr. Peres. Risks, benefits, alternatives, and complications were detailed for her to include, but not limited to risk of bleeding, perforation, infection, reaction to medications, as well as cardiac and pulmonary side effects. They are agreeable to proceed. She has not had any recent fever, chills, chest pain. No hematochezia. No dysphagia or odynophagia. No heartburn or indigestion by her reports. PAST MEDICAL HISTORY: She has a past medical history of morbid obesity, end-stage renal disease, dialysis dependent with a right upper extremity AV graft, recent bleeding from her right upper extremity AV graft with treatment, peripheral vascular disease. She is status post bilateral lower extremity haeck-ixo-wmmy amputation. Recent right lower extremity hskwa-kiw-pdfu stump infection, treated with antibiotics and a VAC system, hypotension on midodrine, morbid obesity, chronic edema, history of left femur fracture, type 2 diabetes, diabetic neuropathy, obstructive sleep apnea, hypothyroidism, chronic pain syndrome, anxiety, finger amputations, previous history of C4 fracture treated with C-collar, subdural hematoma, GERD, diabetic foot ulcer previously, hyperlipidemia, acute on chronic anemia. SOCIAL HISTORY: Presently is living at [facility]. She is . She does not smoke, drink or use illicit drugs. FAMILY HISTORY: Noncontributory from a GI standpoint. ALLERGIES: LISTED TO LISINOPRIL. MEDICATIONS: Home medications are Xanax, Yudelka-Jason, Dulcolax, vitamin D, docusate sodium, gabapentin, Humalog, Constulose, levothyroxine, midodrine, Vigamox, Roxicodone, Protonix, Consultation Report [address] [address] NAME: HA MAGUIRE : [birth year] STATUS : ADM IN [facility]#: [id number] AGE: 61 ADM/REG DATE : 02/06/17 MR#: [id number] REPORT SERV DATE: 02/07/17 DICTATED BY: GAVIOTA GOLD DATE: 02/07/17 REPORT STATUS : Draft TRANSCRIBED BY: ALEXIA DATE: 02/07/17 mely Vuong. REVIEW OF SYSTEMS: A 10-point review of systems has been obtained with pertinent positives being addressed in the history of present illness. PHYSICAL EXAMINATION: VITAL SIGNS: Temperature 98.9, pulse 101, respirations 18, blood pressure 91/55. NEURO: An alert, obese, chronically ill-appearing, female, resting in bed. GENERAL: She is cooperative. She is in no obvious distress. She awakens to name. She is oriented x3. HEAD, EARS, EYES, NOSE, AND THROAT: Anicteric. Pupils equal, round, reactive to light and accommodation. Normocephalic and atraumatic. NECK: No JVD. No palpable nodes. LUNGS: Diminished throughout with normal respiratory effort exhibited. CARDIOVASCULAR SYSTEM: Regular rate and rhythm but tachycardic. ABDOMEN: Soft and obese. Notable pannus, very minimal tenderness diffusely. No rebound guarding elicited on exam. Unable to assess organomegaly secondary to body habitus. EXTREMITIES: Notable right and left geuha-pns-hwbw amputation. Right stump with dressing clean, dry, and intact. LEFT EYE: Crusting and drainage. RIGHT ARM: In a brace. PERTINENT LABORATORY DATA: Sodium 137, potassium is 3.1, BUN is 18, creatinine is 2.61. White blood cell count 12, hemoglobin 9.1, hematocrit 27.5, admission hemoglobin 8.5, and hematocrit of 26. Total bilirubin is 3.8, alkaline phosphatase is 337, ALT 25, AST 48. On 01/16, she had ultrasound showing gallstone sludge, fatty liver, mildly enlarged common bile duct. No obstruction. Trending her hemoglobin on 01/16/2017, hemoglobin was 6.7, 01/18/2017 hemoglobin 9.1, 02/06/2017 hemoglobin 8.5, 02/07/2017 hemoglobin 9.1. ASSESSMENT: 1. "Melena with Hemoccult-positive stool.". 2. Nausea, vomiting. Question this could also be a component of gastroparesis. 3. Abdominal discomfort/intermittent. 4. Hypokalemia. 5. End-stage renal disease, dialysis dependent. 6. Peripheral vascular disease, recent right and left arxjv-gbr-rrwb amputation. 7. Type 2 diabetes. PLAN: 1. As no PPI has been started on this patient through the emergency room, we will begin Protonix 40 mg t.i.d. 2. She will undergo an EGD today. 3. Continue n.p.o. 4. Place potassium. Consultation Report [address] [address] NAME: HA MAGUIRE : [birth year] STATUS : ADM IN PAT#: [id number] AGE: 61 ADM/REG DATE : 02/06/17 MR#: [id number] REPORT SERV DATE: 02/07/17 DICTATED BY: GAVIOTA GOLD DATE: 02/07/17 REPORT STATUS : Draft TRANSCRIBED BY: ALEXIA DATE: 02/07/17 5. Stool studies for diarrhea. 6. Check LFTs in the morning. Other recommendations to follow. EVANS/ALEXIA Gaviota MICKI Pickett / [id number] CC: Kasi Murguia
--- NOTE | ~2017-02-06 | DS ---
Discharge Summary [place] [facility] [place]. [address] NAME: HA MAGUIRE : 59 STATUS : DIS IN PAT#: [id number] AGE: 61 ADM/REG DATE : 02/06/17 MR#: [id number] REPORT SERV DATE: 03/16/17 DICTATED BY: DAWIT SIMON DATE: 03/15/17 REPORT STATUS : Draft TRANSCRIBED BY: ALEXIA DATE: 03/15/17 Data Collection from hospitalization DISCHARGE DIAGNOSES: 1. End-stage renal disease. 2. Anemia. 3. Clostridium difficile. 4. Type 2 diabetes mellitus. 5. Obstructive sleep apnea. 6. Right arm fracture. 7. Chronic hypotension. 8. Morbid obesity. 9. Peripheral vascular disease. 10.Reflux. 11.Hyperlipidemia. 12.Obstructive sleep apnea. 13.Chronic pain. 14.Anxiety. 15.Hypothyroidism. CONSULTATIONS: MICKI Cervantes; Dr. Bhargav Mujica; Dr. Miko Walls. PROCEDURES PERFORMED: 1. Upper GI endoscopy, 02/07/2017. 2. Colonoscopy, 02/09/2017. 3. MRI of the abdomen without contrast, 02/08/2017. 4. Mesenteric duplex study, 02/08/2017. 5. CT scan of the abdomen and pelvis without contrast, 02/17/2017. 6. Gallbladder ultrasound, 02/18/2017. 7. Venous Doppler ultrasound of the left upper extremity, 02/20/2017. PATHOLOGY: Stomach biopsy-mild chronic gastritis. Immunohistochemistry for H pylori negative. DISCHARGE MEDICATIONS: Pepcid 20 mg daily, Neurontin 100 mg twice a day, Synthroid 200 mcg before breakfast, Mycostatin apply under all skin folds topically four times a day, Roxicodone 5 mg every 12 hours as needed and as instructed. Other medications as per hospice. CONDITION AT DISCHARGE: Stable. DISPOSITION: The patient was discharged to [facility], followed by [facility]. HOSPITAL COURSE: This is a 61-year-old female, who has end-stage renal disease, morbid obesity, peripheral vascular disease, and is status post bilateral above-knee amputations along with multiple other problems. She is currently residing at [facility]. The nurses had noted her to have melena and send her to the emergency department. Discharge Summary [address] [address]. [address] NAME: HA MAGUIRE : 59 STATUS : DIS IN PAT#: [id number] AGE: 61 ADM/REG DATE : 02/06/17 MR#: [id number] REPORT SERV DATE: 03/16/17 DICTATED BY: DAWIT SIMON DATE: 03/15/17 REPORT STATUS : Draft TRANSCRIBED BY: MODL DATE: 03/15/17 She said that she had had some mild vague abdominal pain diffusely across the abdomen since Saturday prior to admission. She had had no fevers or chills and no diarrhea. She has chronic problems with nausea and vomiting. In the emergency department, she was found to have heme-positive stool. She was admitted to the hospital at this time for further evaluation and treatment. Upon admission, white blood cell count was 12, creatinine level was 2.6. She was going to be transfused as needed. Hemodialysis therapy would be performed the following day. Her usual medications would be continued as appropriate. No DVT prophylaxis medically would be started due to her melena and she has bilateral above-knee amputations and cannot wear SCDs. She was seen in consultation by Nilton Pickett for evaluation and management of [id number] stools. Her symptoms began the day prior to this admission. The patient's said that she had recently been having issues with constipation and diarrhea. She is on three separate laxatives and stool softeners. She says that she roughly has four bowel movements per day. She has had some mild abdominal cramping that was relieved with diarrhea. She had not had any further bowel movements since presenting to the hospital. Nausea and vomiting were controlled at the present time. It was felt that she should undergo an EGD, and the patient and her were agreeable to proceed. She was started on Protonix. She was held n.p.o. Potassium supplementation would be provided. Stool studies were going to be obtained for her diarrhea. We would check liver function tests the following morning. She was taken to the endoscopic suite by Dr. Ahsan Peres, where she underwent the above-mentioned upper GI endoscopy. She had a normal esophagus. Gastritis was seen and biopsied. She had a normal duodenum. The following day, hemodialysis therapy was performed. An MRI of the abdomen without contrast was performed as well as a mesenteric duplex study. Her stool was positive for C difficile. We would follow her liver function test. There was no evidence of ischemia on the Doppler studies. She had had an incomplete colon prep. On the , she did have a bowel movement, but could not describe the consistency. Her abdomen was soft and nontender. We were going to advance her diet. Liver function test had increased. She had been taken to the endoscopic suite by Dr. Rene Burks for a colonoscopy, but preparation of the colon was inadequate. She does have internal hemorrhoids. No bleeding was seen. Stool was liquid yellow. She had been diagnosed with C difficile. Her appetite was improving. She did have some abdominal cramping. She had been started on vancomycin. Proton pump inhibitor was adjusted. Florastor was being given. She complained of some hip pain, which was chronic. Her nausea and vomiting had resolved. Elevated liver function tests were improving. She did have some hypotension after hemodialysis, and she was transferred to the ICU being weaned off vasopressors. A PICC line was inserted. The patient had a right arm fracture about six months previously. She had canceled her orthopedic appointment for some reason. Her right arm was going to be kept in a brace. She was seen by Dr. Miko العراقي. On 09/09/2016, the patient had fallen from her wheelchair sustaining a subdural hematoma. She was also found to have a C4 fracture and a right femur fracture. These had all been treated nonoperatively. She continued to wear a brace on the right forearm. She has a stable partially healed mildly displaced and angulated fracture of the right humeral diaphysis. On the , her rectal tube was removed. She was taken off Levophed. EPO had being given. On 02/17/2017, CT scan of the abdomen and pelvis without contrast was performed. Creatinine level was 2.37. KCl was given. Stool was now heme negative. On the , she was reporting periumbilical abdominal pain. She has a large pannus that causes discomfort when lifting Discharge Summary [address] [address] NAME: HA MAGUIRE : 59 STATUS : DIS IN PAT#: [id number] AGE: 61 ADM/REG DATE : 02/06/17 MR#: [id number] REPORT SERV DATE: 03/16/17 DICTATED BY: DAWIT SIMON DATE: 03/15/17 REPORT STATUS : Draft TRANSCRIBED BY: MODJesse DATE: 03/15/17 up. Protonix was discontinued. Stool studies were going to be obtained. Gallbladder ultrasound was performed. Pepcid was added to her regimen as well as Bentyl and Florastor. Vancomycin was continued. On 02/19/2017, she continued to have lower abdominal pain. Stooling had decreased. IV albumin was given. Her Bentyl was increased. The patient was found to have cholecystitis. Surgical consult was requested. Her nausea and vomiting had improved. She was seen by Dr. Bhargav Mujica. He did not think that she would be a surgical candidate. He did not think that cholecystectomy would significantly impact her quality or length of life. Venous Doppler ultrasound of the left upper extremity was performed. There was a superficial basilic vein clot around the PICC line. She had some lower abdominal cramping. Rectal tube had been placed with liquid brown stool. Repeat C difficile study was negative. Bentyl was discontinued. A trial of Levsin was going to begin. Simethicone was going to be given after meals. Vancomycin was continued. On the , the patient was tearful. Her had a CVA. She questioned about stopping hemodialysis. Stools were C diff negative at this time. She was seen in palliative care consult by Dr. Miko Walls. The patient wanted to explore other care options. It was felt that her who is presently a patient at [facility] would also need 24/7 nursing care. We were going to look into a plan that would assist both of them to get the care they need, possibly at the same facility. The patient's was still on the diagnostic phase of his illness. His overall condition and level of function were unknown at this time. Once the picture was more clear, he would discuss with the patient a code status and whether dialysis was continuing to provide the benefit for which she had initially started it. The patient said she was depressed, continued to have loose stools and abdominal pain. Hemodialysis therapy was performed. The next day, her nausea was improving. On 02/25/2017, she still had persistent diarrhea. She had been on vancomycin since 02/09/2017. C difficile study had been negative x2 despite the copious diarrhea. She did have edema of all extremities. She also had malnutrition. Over the next couple of days, the patient made the decision that she would like a transfer to the [facility]. Her is reportedly terminally ill at [facility] and would also qualify for hospice care. We spoke with the palliative care physician at [facility] and we would try to coordinate both patients to be transferred. The patient was refusing any further dialysis. Discharge planning was performed. A [facility] liaison met with the patient and discuss hospice philosophy and services. She was agreeable for hospice care for both her and her who was currently at [facility]. We were working on a plan to get them together in the same room, possibly at [facility]. On 03/01/2017, discharge instructions were given. Due to her stable condition, she was discharged to [facility] to be followed by [facility] with the above-stated instructions. Information collected by: America Alfredo I submit the above information as my discharge summary. TG/JUNIORL Discharge Summary [address] [place]. [address] NAME: HA MAGUIRE : 59 STATUS : DIS IN PAT#: [id number] AGE: 61 ADM/REG DATE : 02/06/17 MR#: [id number] REPORT SERV DATE: 03/16/17 DICTATED BY: DAWIT SIMON DATE: 03/15/17 REPORT STATUS : Draft TRANSCRIBED BY: ALEXIA DATE: 03/15/17 Dawit Simon M.D. / [id number] CC: Ascencion Mcclelland M.D. [facility] MICKI Pickett M.D. [facility] Bhargav Mujica Jr., M.D.
[~2017-02-06 17:52] MED LIST changes: +AMITIZA24 PO; +GENERLAC PO; +ZOL100 PO
[2017-02-06 18:15] LABS: BASOPHILS 0.4 %; BASOPHILS ABSOLUTE 0.06 10/3/uL (0.0-0.16); EOSINOPHILS 3.7 %; ER CBC TAT 0 Hrs 07 Mins; HEMOGLOBIN 8.5 g/dL (12.0-16.0); IMMATURE GRANULOCYTES 0.9 %; IMMATURE GRANULOCYTES ABSOLUTE 0.12 10/3/uL (0.0-0.11); LYMPHOCYTES 12.1 %; LYMPHOCYTES ABSOLUTE 1.62 10/3/uL (0.67-4.30); MANUAL DIFF NO %; MEAN CORPUS HGB CONC 32.7 g/dL (32.0-36.0); MEAN CORPUSCULAR HEMOGLOB 31.6 pg (26.0-34.0); MEAN CORPUSCULAR VOLUME 96.7 fL (80-100); MONOCYTES 2.8 %; MONOCYTES ABSOLUTE 0.37 10/3/uL (0.21-1.20); NEUTROPHILS 80.1 %; NEUTROPHILS ABSOLUTE 10.71 10/3/uL (2.02-8.40); PLATELET COUNT 215 10/3/uL (150-400); RBC DISTRIBUTION WIDTH 22.4 % (12.0-16.0); RED CELL COUNT 2.69 10/6/uL (4.0-5.6); WHITE BLOOD CELLS 13.4 10/3/uL (4.5-10.5)
[2017-02-06 18:22] LABS: INTERNATIONAL NORMAL RATI 1.7 UNITS (-); PARTIAL THROMBO TIME 56.1 SEC (22.5-37.2)
[2017-02-06 18:23] LABS: PROTIME (NOT ORD) 19.7 SEC (12.0-14.5)
[2017-02-06 18:31] LABS: ALBUMIN 1.6 G/DL (3.5-5.0); BUN (BLOOD UREA NITROGEN) 15 MG/DL (6-23); CALCIUM, SERUM 7.1 MG/DL (8.5-10.4); CHLORIDE, SERUM 94 MMOL/L (96-112); GFR AFRICAN AMERICAN 28 ML/MIN (>=60); GFR NON AFRICAN AMERICAN 24 ML/MIN (>=60); SGOT(AST) 48 U/L (5-40); SGPT(ALT) 25 U/L (5-65); SODIUM, SERUM 135 MMOL/L (135-148)
[2017-02-06 18:37] LABS: A/G RATIO 0.3 (0.7-1.9); ALKALINE PHOSPHATASE 337 U/L (45-117); CO2 (CARBON DIOXIDE) 32 MMOL/L (24-34); GLOBULIN 4.9 G/DL (2.5-4.1); GLUCOSE, SERUM 162 MG/DL (60-99); POTASSIUM, SERUM 2.5 MMOL/L (3.5-5.3); TOTAL BILIRUBIN 3.8 MG/DL (0-1.2); TOTAL PROTEIN 6.5 G/DL (6.0-8.5)
[2017-02-06 18:58] LABS: ANISOCYTOSIS 1+ (5-10/OIF) (0-5/OIF); PLATELET ESTIMATE ADQ (ADEQUATE)
[2017-02-06] MEDS ORDERED: D.O.S.100 MG PO (20:03)
[2017-02-06] MEDS ORDERED: BIST PO (20:03)
[2017-02-06] MEDS ORDERED: HUMALOG SC (20:03)
[2017-02-06] MEDS ORDERED: PROTONIX PO (20:04)
[2017-02-06] MEDS ORDERED: ZOL100 PO (20:04)
[2017-02-06] MEDS ORDERED: LEVOTHYROXIN200 MCG PO (20:04)
[2017-02-06] MEDS ORDERED: CONSTULOSE PO (20:04)
[2017-02-06] MEDS ORDERED: D 5000 PO (20:05)
[2017-02-06] MEDS ORDERED: NEUR100 PO (20:05)
[2017-02-06] MEDS ORDERED: MIDODRINE10 MG PO (20:05)
[2017-02-06] MEDS ORDERED: VIGAMOX OPH (20:06)
[2017-02-06] MEDS ORDERED: RENA-VITE PO (20:06)
[2017-02-06] MEDS ORDERED: K PHOS NEUTRAL PO (20:07)
[2017-02-06] MEDS ORDERED: XANAX1 MG PO (20:08)
[2017-02-06] MEDS ORDERED: OXYCOD PO (20:09)
[2017-02-07 06:39] LABS: HEMATOCRIT 27.5 % (36.0-48.0); HEMOGLOBIN 9.1 g/dL (12.0-16.0); MEAN CORPUS HGB CONC 33.1 g/dL (32.0-36.0); MEAN CORPUSCULAR HEMOGLOB 31.4 pg (26.0-34.0); MEAN CORPUSCULAR VOLUME 94.8 fL (80-100); MEAN PLATELET VOLUME 9.4 fL (9.2-13.0); PLATELET COUNT 214 10/3/uL (150-400); RBC DISTRIBUTION WIDTH 22.2 % (12.0-16.0)
[2017-02-07 06:43] LABS: MANUAL DIFF YES %
[2017-02-07 06:57] LABS: BUN (BLOOD UREA NITROGEN) 18 MG/DL (6-23); CALCIUM, SERUM 7.3 MG/DL (8.5-10.4); CHLORIDE, SERUM 99 MMOL/L (96-112); CO2 (CARBON DIOXIDE) 29 MMOL/L (24-34); CREATININE 2.61 MG/DL (0.55-1.02); GFR AFRICAN AMERICAN 22 ML/MIN (>=60); GFR NON AFRICAN AMERICAN 19 ML/MIN (>=60); GLUCOSE, SERUM 133 MG/DL (60-99); SODIUM, SERUM 137 MMOL/L (135-148)
[2017-02-07 06:58] LABS: POTASSIUM, SERUM 3.1 MMOL/L (3.5-5.3)
[2017-02-07 07:45] LABS: ANISOCYTOSIS 1+ (5-10/OIF) (0-5/OIF); BAND NEUTROPHILS 4 %; EOSINOPHILS 5 %; IMMATURE GRANS ABSOLUTE (CALC) 0.24 10/3/uL (0.0-0.11); LYMPHOCYTES 13 %; LYMPHOCYTES ABSOLUTE (CALC) 1.56 10/3/uL (0.67-4.30); METAMYELOCYTES 2 %; MONOCYTES 4 %; MONOCYTES ABSOLUTE (CALC) 0.48 10/3/uL (0.21-1.20); NEUTROPHILS ABSOLUTE (CALC) 9.12 10/3/uL (2.02-8.40); PLATELET ESTIMATE ADQ (ADEQUATE); SEGMENTED NEUTROPHIL (0) 72 %; TOTAL NUCLEATED CELLS 100
[2017-02-08 07:53] LABS: BASOPHILS 0.4 %; BASOPHILS ABSOLUTE 0.04 10/3/uL (0.0-0.16); EOSINOPHILS 4.9 %; EOSINOPHILS ABSOLUTE 0.55 10/3/uL (0.0-0.53); HEMATOCRIT 25.2 % (36.0-48.0); HEMOGLOBIN 8.6 g/dL (12.0-16.0); IMMATURE GRANULOCYTES 0.9 %; LYMPHOCYTES 12.9 %; LYMPHOCYTES ABSOLUTE 1.44 10/3/uL (0.67-4.30); MEAN CORPUS HGB CONC 34.1 g/dL (32.0-36.0); MEAN CORPUSCULAR HEMOGLOB 31.6 pg (26.0-34.0); MEAN CORPUSCULAR VOLUME 92.6 fL (80-100); MEAN PLATELET VOLUME 9.1 fL (9.2-13.0); MONOCYTES 2.9 %; MONOCYTES ABSOLUTE 0.32 10/3/uL (0.21-1.20); NEUTROPHILS ABSOLUTE 8.73 10/3/uL (2.02-8.40); PLATELET COUNT 202 10/3/uL (150-400); RBC DISTRIBUTION WIDTH 21.8 % (12.0-16.0); RED CELL COUNT 2.72 10/6/uL (4.0-5.6); WHITE BLOOD CELLS 11.2 10/3/uL (4.5-10.5)
[2017-02-08 07:55] LABS: MANUAL DIFF NO %
[2017-02-08 08:06] LABS: ALBUMIN 1.5 G/DL (3.5-5.0); CALCIUM, SERUM 7.2 MG/DL (8.5-10.4); CHLORIDE, SERUM 101 MMOL/L (96-112); CO2 (CARBON DIOXIDE) 28 MMOL/L (24-34); GLUCOSE, SERUM 132 MG/DL (60-99); POTASSIUM, SERUM 3.1 MMOL/L (3.5-5.3); SGOT(AST) 32 U/L (5-40); SGPT(ALT) 15 U/L (5-65); SODIUM, SERUM 139 MMOL/L (135-148); TOTAL PROTEIN 5.9 G/DL (6.0-8.5)
[2017-02-08 08:08] LABS: ALKALINE PHOSPHATASE 297 U/L (45-117); BUN (BLOOD UREA NITROGEN) 25 MG/DL (6-23); CREATININE 3.38 MG/DL (0.55-1.02); DIRECT BILIRUBIN 1.9 MG/DL (0.0-0.4); GFR AFRICAN AMERICAN 16 ML/MIN (>=60); GFR NON AFRICAN AMERICAN 14 ML/MIN (>=60); PHOSPHORUS, SERUM 5.2 MG/DL (2.5-4.5); TOTAL BILIRUBIN 2.9 MG/DL (0-1.2)
[2017-02-08 10:38] LABS: INTERNATIONAL NORMAL RATI 1.4 UNITS (-); PROTIME (NOT ORD) 17.4 SEC (12.0-14.5)
[2017-02-09 04:03] LABS: BASOPHILS 0.5 %; BASOPHILS ABSOLUTE 0.05 10/3/uL (0.0-0.16); EOSINOPHILS 7.1 %; EOSINOPHILS ABSOLUTE 0.75 10/3/uL (0.0-0.53); HEMATOCRIT 27.3 % (36.0-48.0); HEMOGLOBIN 8.8 g/dL (12.0-16.0); IMMATURE GRANULOCYTES 1.1 %; IMMATURE GRANULOCYTES ABSOLUTE 0.12 10/3/uL (0.0-0.11); LYMPHOCYTES 12.7 %; LYMPHOCYTES ABSOLUTE 1.35 10/3/uL (0.67-4.30); MEAN CORPUSCULAR HEMOGLOB 31.9 pg (26.0-34.0); MEAN PLATELET VOLUME 9.1 fL (9.2-13.0); MONOCYTES 3.6 %; MONOCYTES ABSOLUTE 0.38 10/3/uL (0.21-1.20); NEUTROPHILS ABSOLUTE 7.94 10/3/uL (2.02-8.40); PLATELET COUNT 226 10/3/uL (150-400); RBC DISTRIBUTION WIDTH 22.1 % (12.0-16.0); RED CELL COUNT 2.76 10/6/uL (4.0-5.6); WHITE BLOOD CELLS 10.6 10/3/uL (4.5-10.5)
[2017-02-09 04:09] LABS: INTERNATIONAL NORMAL RATI 1.4 UNITS (-); PROTIME (NOT ORD) 17.1 SEC (12.0-14.5)
[2017-02-09 04:10] LABS: PARTIAL THROMBO TIME 50.5 SEC (22.5-37.2)
[2017-02-09 04:11] LABS: MANUAL DIFF NO %; MEAN CORPUS HGB CONC 32.2 g/dL (32.0-36.0); MEAN CORPUSCULAR VOLUME 98.9 fL (80-100)
[2017-02-09 04:21] LABS: A/G RATIO 0.3 (0.7-1.9); ALBUMIN 1.5 G/DL (3.5-5.0); ALKALINE PHOSPHATASE 299 U/L (45-117); CALCIUM, SERUM 7.1 MG/DL (8.5-10.4); CHLORIDE, SERUM 105 MMOL/L (96-112); CO2 (CARBON DIOXIDE) 27 MMOL/L (24-34); GLOBULIN 4.6 G/DL (2.5-4.1); GLUCOSE, SERUM 141 MG/DL (60-99); INDIRECT BILIRUBIN(NOT ORDER) 1.4 MG/DL (0.1-0.9); SGOT(AST) 32 U/L (5-40); SGPT(ALT) 14 U/L (5-65); SODIUM, SERUM 141 MMOL/L (135-148); TOTAL BILIRUBIN 3.1 MG/DL (0-1.2); TOTAL PROTEIN 6.1 G/DL (6.0-8.5)
[2017-02-09 04:26] LABS: BUN (BLOOD UREA NITROGEN) 12 MG/DL (6-23); CREATININE 2.17 MG/DL (0.55-1.02); DIRECT BILIRUBIN 1.7 MG/DL (0.0-0.4); GFR AFRICAN AMERICAN 28 ML/MIN (>=60); GFR NON AFRICAN AMERICAN 24 ML/MIN (>=60)
[2017-02-09 04:49] LABS: PLATELET ESTIMATE ADQ (ADEQUATE)
[2017-02-10 05:04] LABS: BASOPHILS 0.4 %; BASOPHILS ABSOLUTE 0.06 10/3/uL (0.0-0.16); EOSINOPHILS 4.2 %; EOSINOPHILS ABSOLUTE 0.58 10/3/uL (0.0-0.53); HEMOGLOBIN 7.9 g/dL (12.0-16.0); IMMATURE GRANULOCYTES 0.7 %; LYMPHOCYTES 12.5 %; LYMPHOCYTES ABSOLUTE 1.73 10/3/uL (0.67-4.30); MEAN CORPUS HGB CONC 32.6 g/dL (32.0-36.0); MEAN CORPUSCULAR HEMOGLOB 31.9 pg (26.0-34.0); MEAN CORPUSCULAR VOLUME 97.6 fL (80-100); MEAN PLATELET VOLUME 9.4 fL (9.2-13.0); MONOCYTES 2.6 %; MONOCYTES ABSOLUTE 0.36 10/3/uL (0.21-1.20); NEUTROPHILS 79.6 %; NEUTROPHILS ABSOLUTE 11.06 10/3/uL (2.02-8.40); PLATELET COUNT 211 10/3/uL (150-400); RBC DISTRIBUTION WIDTH 21.8 % (12.0-16.0); RED CELL COUNT 2.48 10/6/uL (4.0-5.6); WHITE BLOOD CELLS 13.9 10/3/uL (4.5-10.5)
[2017-02-10 05:05] LABS: HEMATOCRIT 24.2 % (36.0-48.0); MANUAL DIFF NO %
[2017-02-10 05:14] LABS: ALBUMIN 1.5 G/DL (3.5-5.0); CHLORIDE, SERUM 104 MMOL/L (96-112); CO2 (CARBON DIOXIDE) 27 MMOL/L (24-34); GFR AFRICAN AMERICAN 21 ML/MIN (>=60); GFR NON AFRICAN AMERICAN 18 ML/MIN (>=60); GLUCOSE, SERUM 127 MG/DL (60-99); PHOSPHORUS, SERUM 4.3 MG/DL (2.5-4.5); POTASSIUM, SERUM 3.5 MMOL/L (3.5-5.3); SODIUM, SERUM 142 MMOL/L (135-148)
[2017-02-10 05:15] LABS: BUN (BLOOD UREA NITROGEN) 18 MG/DL (6-23); CREATININE 2.74 MG/DL (0.55-1.02)
[2017-02-11 05:21] LABS: ALBUMIN 1.5 G/DL (3.5-5.0); DIRECT BILIRUBIN 1.7 MG/DL (0.0-0.4); INDIRECT BILIRUBIN(NOT ORDER) 1.1 MG/DL (0.1-0.9); TOTAL BILIRUBIN 2.8 MG/DL (0-1.2); TOTAL PROTEIN 5.7 G/DL (6.0-8.5)
[2017-02-11 10:23] LABS: HEPATITIS C ANTIBODY NON-REACTIVE (NON-REACT)
[2017-02-11 10:24] LABS: HEPATITIS B CORE AB IGM NON-REACTIVE (NON-REAC); HEPATITIS B SURFACE ANTIGEN NON-REACTIVE (NON-REACT)
[2017-02-11 10:25] LABS: HEP A ANTIBODY IGM NON-REACTIVE (NON-REACT)
[2017-02-11 10:27] LABS: HEPATITIS B SURFACE ANTIGEN NON-REACTIVE (NON-REACT)
[2017-02-11 10:31] LABS: HEPATITIS C ANTIBODY NON-REACTIVE (NON-REACT)
[2017-02-11 10:32] LABS: HEPATITIS B CORE AB IGM NON-REACTIVE (NON-REAC)
[2017-02-11 10:34] LABS: HEP A ANTIBODY IGM NON-REACTIVE (NON-REACT)
[2017-02-11 11:19] LABS: ANA PATTERN HOMOGENEOUS
[2017-02-11 17:25] LABS: BASOPHILS 0.5 %; BASOPHILS ABSOLUTE 0.07 10/3/uL (0.0-0.16); EOSINOPHILS 3.2 %; EOSINOPHILS ABSOLUTE 0.48 10/3/uL (0.0-0.53); IMMATURE GRANULOCYTES 0.5 %; IMMATURE GRANULOCYTES ABSOLUTE 0.08 10/3/uL (0.0-0.11); LYMPHOCYTES 12.3 %; LYMPHOCYTES ABSOLUTE 1.85 10/3/uL (0.67-4.30); MEAN CORPUS HGB CONC 33.5 g/dL (32.0-36.0); MEAN CORPUSCULAR HEMOGLOB 32.3 pg (26.0-34.0); MEAN CORPUSCULAR VOLUME 96.3 fL (80-100); MEAN PLATELET VOLUME 8.8 fL (9.2-13.0); MONOCYTES 2.9 %; MONOCYTES ABSOLUTE 0.43 10/3/uL (0.21-1.20); NEUTROPHILS 80.6 %; NEUTROPHILS ABSOLUTE 12.15 10/3/uL (2.02-8.40); PLATELET COUNT 201 10/3/uL (150-400); RBC DISTRIBUTION WIDTH 21.6 % (12.0-16.0); RED CELL COUNT 2.17 10/6/uL (4.0-5.6); WHITE BLOOD CELLS 15.1 10/3/uL (4.5-10.5)
[2017-02-11 17:27] LABS: HEMATOCRIT 20.9 % (36.0-48.0)
[2017-02-11 17:28] LABS: MANUAL DIFF NO %
[2017-02-11 17:47] LABS: ALBUMIN 1.3 G/DL (3.5-5.0); CHLORIDE, SERUM 103 MMOL/L (96-112); CO2 (CARBON DIOXIDE) 24 MMOL/L (24-34); GLUCOSE, SERUM 123 MG/DL (60-99); PHOSPHORUS, SERUM 6.5 MG/DL (2.5-4.5); POTASSIUM, SERUM 3.1 MMOL/L (3.5-5.3); SODIUM, SERUM 139 MMOL/L (135-148)
[2017-02-11 17:48] LABS: BUN (BLOOD UREA NITROGEN) 35 MG/DL (6-23); CREATININE 4.03 MG/DL (0.55-1.02); GFR AFRICAN AMERICAN 13 ML/MIN (>=60); GFR NON AFRICAN AMERICAN 11 ML/MIN (>=60)
[2017-02-11 17:49] LABS: CALCIUM, SERUM 5.9 MG/DL (8.5-10.4)
[2017-02-12 00:37] LABS: HEMATOCRIT 31.2 % (36.0-48.0); HEMOGLOBIN 10.5 g/dL (12.0-16.0)
[2017-02-12 04:07] LABS: BASOPHILS 0.7 %; BASOPHILS ABSOLUTE 0.11 10/3/uL (0.0-0.16); EOSINOPHILS 2.7 %; EOSINOPHILS ABSOLUTE 0.43 10/3/uL (0.0-0.53); HEMATOCRIT 33.2 % (36.0-48.0); IMMATURE GRANULOCYTES 0.9 %; IMMATURE GRANULOCYTES ABSOLUTE 0.14 10/3/uL (0.0-0.11); LYMPHOCYTES 11.1 %; LYMPHOCYTES ABSOLUTE 1.73 10/3/uL (0.67-4.30); MEAN CORPUS HGB CONC 33.1 g/dL (32.0-36.0); MEAN CORPUSCULAR HEMOGLOB 31.6 pg (26.0-34.0); MEAN CORPUSCULAR VOLUME 95.4 fL (80-100); MEAN PLATELET VOLUME 9.1 fL (9.2-13.0); MONOCYTES 3.1 %; MONOCYTES ABSOLUTE 0.48 10/3/uL (0.21-1.20); NEUTROPHILS 81.5 %; NEUTROPHILS ABSOLUTE 12.75 10/3/uL (2.02-8.40); PLATELET COUNT 235 10/3/uL (150-400); RBC DISTRIBUTION WIDTH 20.3 % (12.0-16.0); WHITE BLOOD CELLS 15.6 10/3/uL (4.5-10.5)
[2017-02-12 04:17] LABS: MANUAL DIFF NO %; RED CELL COUNT 3.48 10/6/uL (4.0-5.6)
[2017-02-12 04:25] LABS: ALKALINE PHOSPHATASE 235 U/L (45-117); CHLORIDE, SERUM 105 MMOL/L (96-112); CO2 (CARBON DIOXIDE) 24 MMOL/L (24-34); POTASSIUM, SERUM 3.4 MMOL/L (3.5-5.3); SGOT(AST) 21 U/L (5-40); SGPT(ALT) 12 U/L (5-65); SODIUM, SERUM 142 MMOL/L (135-148); TOTAL PROTEIN 6.2 G/DL (6.0-8.5)
[2017-02-12 04:41] LABS: BUN (BLOOD UREA NITROGEN) 14 MG/DL (6-23); CREATININE 2.01 MG/DL (0.55-1.02); GFR AFRICAN AMERICAN 31 ML/MIN (>=60); GFR NON AFRICAN AMERICAN 26 ML/MIN (>=60); GLUCOSE, SERUM 170 MG/DL (60-99)
[2017-02-12 04:42] LABS: A/G RATIO 0.4 (0.7-1.9); ALBUMIN 1.8 G/DL (3.5-5.0); CALCIUM, SERUM 6.8 MG/DL (8.5-10.4); GLOBULIN 4.4 G/DL (2.5-4.1); PHOSPHORUS, SERUM 3.4 MG/DL (2.5-4.5); TOTAL BILIRUBIN 3.6 MG/DL (0-1.2)
[2017-02-12 18:22] LABS: ALPHA-1-ANTITRYPSIN 200 mg/dL (100-200)
[2017-02-13 06:55] LABS: BASOPHILS 0.9 %; EOSINOPHILS 3.6 %; EOSINOPHILS ABSOLUTE 0.39 10/3/uL (0.0-0.53); HEMOGLOBIN 9.8 g/dL (12.0-16.0); IMMATURE GRANULOCYTES 0.7 %; IMMATURE GRANULOCYTES ABSOLUTE 0.08 10/3/uL (0.0-0.11); LYMPHOCYTES 15.1 %; LYMPHOCYTES ABSOLUTE 1.64 10/3/uL (0.67-4.30); MANUAL DIFF NO %; MEAN CORPUS HGB CONC 33.8 g/dL (32.0-36.0); MEAN CORPUSCULAR HEMOGLOB 31.2 pg (26.0-34.0); MEAN CORPUSCULAR VOLUME 92.4 fL (80-100); MEAN PLATELET VOLUME 8.7 fL (9.2-13.0); MONOCYTES 3.5 %; MONOCYTES ABSOLUTE 0.38 10/3/uL (0.21-1.20); NEUTROPHILS 76.2 %; NEUTROPHILS ABSOLUTE 8.27 10/3/uL (2.02-8.40); PLATELET COUNT 210 10/3/uL (150-400); RBC DISTRIBUTION WIDTH 20.7 % (12.0-16.0); RED CELL COUNT 3.14 10/6/uL (4.0-5.6); WHITE BLOOD CELLS 10.9 10/3/uL (4.5-10.5)
[2017-02-13 07:25] LABS: A/G RATIO 0.4 (0.7-1.9); ALBUMIN 1.5 G/DL (3.5-5.0); CHLORIDE, SERUM 105 MMOL/L (96-112); CO2 (CARBON DIOXIDE) 24 MMOL/L (24-34); GLOBULIN 4.1 G/DL (2.5-4.1); GLUCOSE, SERUM 147 MG/DL (60-99); SGOT(AST) 20 U/L (5-40); SGPT(ALT) 11 U/L (5-65); SODIUM, SERUM 144 MMOL/L (135-148); TOTAL PROTEIN 5.6 G/DL (6.0-8.5)
[2017-02-13 07:28] LABS: ALKALINE PHOSPHATASE 200 U/L (45-117); BUN (BLOOD UREA NITROGEN) 25 MG/DL (6-23); CALCIUM, SERUM 6.5 MG/DL (8.5-10.4); CREATININE 2.92 MG/DL (0.55-1.02); GFR AFRICAN AMERICAN 20 ML/MIN (>=60); GFR NON AFRICAN AMERICAN 17 ML/MIN (>=60); PHOSPHORUS, SERUM 5.9 MG/DL (2.5-4.5); POTASSIUM, SERUM 2.6 MMOL/L (3.5-5.3); TOTAL BILIRUBIN 2.8 MG/DL (0-1.2)
[2017-02-13 12:29] LABS: MITOCHONDRIAL ANTIBODY Negative (NEG)
[2017-02-13 15:51] LABS: SMOOTH MUSCLE ANTIBODIES Negative (NEG)
[2017-02-14 00:47] LABS: BASOPHILS 0.5 %; BASOPHILS ABSOLUTE 0.05 10/3/uL (0.0-0.16); EOSINOPHILS 1.8 %; EOSINOPHILS ABSOLUTE 0.19 10/3/uL (0.0-0.53); HEMATOCRIT 28.3 % (36.0-48.0); HEMOGLOBIN 9.3 g/dL (12.0-16.0); IMMATURE GRANULOCYTES 0.9 %; IMMATURE GRANULOCYTES ABSOLUTE 0.09 10/3/uL (0.0-0.11); LYMPHOCYTES 15.1 %; LYMPHOCYTES ABSOLUTE 1.56 10/3/uL (0.67-4.30); MANUAL DIFF NO %; MEAN CORPUS HGB CONC 32.9 g/dL (32.0-36.0); MEAN CORPUSCULAR HEMOGLOB 31.2 pg (26.0-34.0); MEAN PLATELET VOLUME 8.9 fL (9.2-13.0); MONOCYTES 3.7 %; MONOCYTES ABSOLUTE 0.38 10/3/uL (0.21-1.20); NEUTROPHILS ABSOLUTE 8.06 10/3/uL (2.02-8.40); PLATELET COUNT 229 10/3/uL (150-400); RBC DISTRIBUTION WIDTH 20.9 % (12.0-16.0); RED CELL COUNT 2.98 10/6/uL (4.0-5.6); WHITE BLOOD CELLS 10.3 10/3/uL (4.5-10.5)
[2017-02-14 01:31] LABS: CALCIUM, SERUM 7.2 MG/DL (8.5-10.4); CHLORIDE, SERUM 106 MMOL/L (96-112); CO2 (CARBON DIOXIDE) 28 MMOL/L (24-34); GLUCOSE, SERUM 142 MG/DL (60-99); SODIUM, SERUM 142 MMOL/L (135-148)
[2017-02-14 01:36] LABS: BUN (BLOOD UREA NITROGEN) 16 MG/DL (6-23); CREATININE 1.94 MG/DL (0.55-1.02); GFR AFRICAN AMERICAN 32 ML/MIN (>=60); GFR NON AFRICAN AMERICAN 28 ML/MIN (>=60); POTASSIUM, SERUM 2.8 MMOL/L (3.5-5.3)
[2017-02-14 05:25] LABS: BASOPHILS 0.9 %; BASOPHILS ABSOLUTE 0.08 10/3/uL (0.0-0.16); EOSINOPHILS 4.1 %; EOSINOPHILS ABSOLUTE 0.37 10/3/uL (0.0-0.53); HEMATOCRIT 27.7 % (36.0-48.0); HEMOGLOBIN 9.2 g/dL (12.0-16.0); IMMATURE GRANULOCYTES 0.8 %; IMMATURE GRANULOCYTES ABSOLUTE 0.07 10/3/uL (0.0-0.11); LYMPHOCYTES 18.9 %; LYMPHOCYTES ABSOLUTE 1.69 10/3/uL (0.67-4.30); MEAN CORPUS HGB CONC 33.2 g/dL (32.0-36.0); MEAN CORPUSCULAR HEMOGLOB 31.5 pg (26.0-34.0); MEAN CORPUSCULAR VOLUME 94.9 fL (80-100); MEAN PLATELET VOLUME 9.1 fL (9.2-13.0); MONOCYTES 4.2 %; MONOCYTES ABSOLUTE 0.38 10/3/uL (0.21-1.20); NEUTROPHILS 71.1 %; NEUTROPHILS ABSOLUTE 6.36 10/3/uL (2.02-8.40); PLATELET COUNT 221 10/3/uL (150-400); RBC DISTRIBUTION WIDTH 20.7 % (12.0-16.0); RED CELL COUNT 2.92 10/6/uL (4.0-5.6)
[2017-02-14 05:36] LABS: MANUAL DIFF NO %
[2017-02-14 05:47] LABS: ALBUMIN 1.5 G/DL (3.5-5.0); BUN (BLOOD UREA NITROGEN) 17 MG/DL (6-23); CALCIUM, SERUM 7.1 MG/DL (8.5-10.4); CHLORIDE, SERUM 109 MMOL/L (96-112); CO2 (CARBON DIOXIDE) 27 MMOL/L (24-34); CREATININE 1.98 MG/DL (0.55-1.02); GFR AFRICAN AMERICAN 31 ML/MIN (>=60); GFR NON AFRICAN AMERICAN 27 ML/MIN (>=60); GLUCOSE, SERUM 126 MG/DL (60-99); PHOSPHORUS, SERUM 3.6 MG/DL (2.5-4.5); POTASSIUM, SERUM 3.2 MMOL/L (3.5-5.3); SODIUM, SERUM 145 MMOL/L (135-148)
[2017-02-15 04:47] LABS: BASOPHILS 1.1 %; BASOPHILS ABSOLUTE 0.09 10/3/uL (0.0-0.16); EOSINOPHILS 6.3 %; EOSINOPHILS ABSOLUTE 0.53 10/3/uL (0.0-0.53); HEMATOCRIT 25.6 % (36.0-48.0); HEMOGLOBIN 8.5 g/dL (12.0-16.0); IMMATURE GRANULOCYTES 0.8 %; IMMATURE GRANULOCYTES ABSOLUTE 0.07 10/3/uL (0.0-0.11); LYMPHOCYTES 19.6 %; LYMPHOCYTES ABSOLUTE 1.65 10/3/uL (0.67-4.30); MEAN CORPUS HGB CONC 33.2 g/dL (32.0-36.0); MEAN CORPUSCULAR HEMOGLOB 31.8 pg (26.0-34.0); MEAN CORPUSCULAR VOLUME 95.9 fL (80-100); MEAN PLATELET VOLUME 9.3 fL (9.2-13.0); MONOCYTES 4.8 %; NEUTROPHILS 67.4 %; NEUTROPHILS ABSOLUTE 5.68 10/3/uL (2.02-8.40); PLATELET COUNT 206 10/3/uL (150-400); RBC DISTRIBUTION WIDTH 20.7 % (12.0-16.0); RED CELL COUNT 2.67 10/6/uL (4.0-5.6); WHITE BLOOD CELLS 8.4 10/3/uL (4.5-10.5)
[2017-02-15 04:53] LABS: MANUAL DIFF NO %
[2017-02-15 05:17] LABS: ALBUMIN 1.7 G/DL (3.5-5.0); CHLORIDE, SERUM 106 MMOL/L (96-112); CO2 (CARBON DIOXIDE) 24 MMOL/L (24-34); FREE T4 1.25 NG/DL (0.76-1.46); GLUCOSE, SERUM 122 MG/DL (60-99); SODIUM, SERUM 140 MMOL/L (135-148)
[2017-02-15 05:28] LABS: BUN (BLOOD UREA NITROGEN) 23 MG/DL (6-23); CALCIUM, SERUM 7.4 MG/DL (8.5-10.4); CREATININE 2.49 MG/DL (0.55-1.02); GFR AFRICAN AMERICAN 24 ML/MIN (>=60); GFR NON AFRICAN AMERICAN 20 ML/MIN (>=60); POTASSIUM, SERUM 3.4 MMOL/L (3.5-5.3)
[2017-02-15 05:29] LABS: PHOSPHORUS, SERUM 5.2 MG/DL (2.5-4.5)
[2017-02-16 05:28] LABS: BASOPHILS 1.2 %; EOSINOPHILS 3.4 %; EOSINOPHILS ABSOLUTE 0.29 10/3/uL (0.0-0.53); HEMOGLOBIN 7.7 g/dL (12.0-16.0); IMMATURE GRANULOCYTES ABSOLUTE 0.09 10/3/uL (0.0-0.11); LYMPHOCYTES ABSOLUTE 1.46 10/3/uL (0.67-4.30); MANUAL DIFF NO %; MEAN CORPUS HGB CONC 32.1 g/dL (32.0-36.0); MEAN CORPUSCULAR HEMOGLOB 31.4 pg (26.0-34.0); MEAN PLATELET VOLUME 9.3 fL (9.2-13.0); MONOCYTES 4.3 %; MONOCYTES ABSOLUTE 0.37 10/3/uL (0.21-1.20); NEUTROPHILS 73.1 %; NEUTROPHILS ABSOLUTE 6.27 10/3/uL (2.02-8.40); PLATELET COUNT 197 10/3/uL (150-400); RBC DISTRIBUTION WIDTH 20.6 % (12.0-16.0); RED CELL COUNT 2.45 10/6/uL (4.0-5.6); WHITE BLOOD CELLS 8.6 10/3/uL (4.5-10.5)
[2017-02-16 05:45] LABS: ALBUMIN 1.5 G/DL (3.5-5.0); CALCIUM, SERUM 7.2 MG/DL (8.5-10.4); CHLORIDE, SERUM 109 MMOL/L (96-112); CO2 (CARBON DIOXIDE) 26 MMOL/L (24-34); GLUCOSE, SERUM 106 MG/DL (60-99); POTASSIUM, SERUM 3.3 MMOL/L (3.5-5.3); SODIUM, SERUM 145 MMOL/L (135-148)
[2017-02-16 06:03] LABS: BUN (BLOOD UREA NITROGEN) 16 MG/DL (6-23); CREATININE 1.98 MG/DL (0.55-1.02); GFR AFRICAN AMERICAN 31 ML/MIN (>=60); GFR NON AFRICAN AMERICAN 27 ML/MIN (>=60); PHOSPHORUS, SERUM 2.9 MG/DL (2.5-4.5)
[2017-02-17 05:19] LABS: BASOPHILS 1.3 %; BASOPHILS ABSOLUTE 0.13 10/3/uL (0.0-0.16); EOSINOPHILS 4.2 %; EOSINOPHILS ABSOLUTE 0.42 10/3/uL (0.0-0.53); HEMATOCRIT 23.7 % (36.0-48.0); HEMOGLOBIN 7.5 g/dL (12.0-16.0); IMMATURE GRANULOCYTES 1.5 %; IMMATURE GRANULOCYTES ABSOLUTE 0.15 10/3/uL (0.0-0.11); LYMPHOCYTES 16.6 %; LYMPHOCYTES ABSOLUTE 1.66 10/3/uL (0.67-4.30); MEAN CORPUS HGB CONC 31.6 g/dL (32.0-36.0); MEAN CORPUSCULAR HEMOGLOB 30.9 pg (26.0-34.0); MEAN CORPUSCULAR VOLUME 97.5 fL (80-100); MEAN PLATELET VOLUME 9.3 fL (9.2-13.0); MONOCYTES 4.1 %; MONOCYTES ABSOLUTE 0.41 10/3/uL (0.21-1.20); NEUTROPHILS 72.3 %; NEUTROPHILS ABSOLUTE 7.21 10/3/uL (2.02-8.40); PLATELET COUNT 228 10/3/uL (150-400); RBC DISTRIBUTION WIDTH 20.6 % (12.0-16.0); RED CELL COUNT 2.43 10/6/uL (4.0-5.6)
[2017-02-17 05:20] LABS: MANUAL DIFF NO %
[2017-02-17 05:35] LABS: ALBUMIN 1.4 G/DL (3.5-5.0); BUN (BLOOD UREA NITROGEN) 21 MG/DL (6-23); CALCIUM, SERUM 6.8 MG/DL (8.5-10.4); CHLORIDE, SERUM 110 MMOL/L (96-112); CO2 (CARBON DIOXIDE) 24 MMOL/L (24-34); CREATININE 2.37 MG/DL (0.55-1.02); GFR AFRICAN AMERICAN 25 ML/MIN (>=60); GFR NON AFRICAN AMERICAN 22 ML/MIN (>=60); GLUCOSE, SERUM 113 MG/DL (60-99); PHOSPHORUS, SERUM 3.9 MG/DL (2.5-4.5); POTASSIUM, SERUM 3.5 MMOL/L (3.5-5.3); SODIUM, SERUM 143 MMOL/L (135-148)
[2017-02-18 04:53] LABS: BASOPHILS 0.7 %; BASOPHILS ABSOLUTE 0.08 10/3/uL (0.0-0.16); EOSINOPHILS 4.4 %; EOSINOPHILS ABSOLUTE 0.47 10/3/uL (0.0-0.53); HEMATOCRIT 23.3 % (36.0-48.0); HEMOGLOBIN 7.7 g/dL (12.0-16.0); IMMATURE GRANULOCYTES 1.2 %; IMMATURE GRANULOCYTES ABSOLUTE 0.13 10/3/uL (0.0-0.11); LYMPHOCYTES 16.8 %; MEAN CORPUSCULAR HEMOGLOB 32.1 pg (26.0-34.0); MEAN CORPUSCULAR VOLUME 97.1 fL (80-100); MEAN PLATELET VOLUME 9.2 fL (9.2-13.0); MONOCYTES 3.6 %; MONOCYTES ABSOLUTE 0.39 10/3/uL (0.21-1.20); NEUTROPHILS 73.3 %; NEUTROPHILS ABSOLUTE 7.83 10/3/uL (2.02-8.40); PLATELET COUNT 231 10/3/uL (150-400); RBC DISTRIBUTION WIDTH 20.7 % (12.0-16.0); WHITE BLOOD CELLS 10.7 10/3/uL (4.5-10.5)
[2017-02-18 04:54] LABS: MANUAL DIFF NO %
[2017-02-18 05:07] LABS: CHLORIDE, SERUM 108 MMOL/L (96-112); CO2 (CARBON DIOXIDE) 21 MMOL/L (24-34); GLUCOSE, SERUM 114 MG/DL (60-99); POTASSIUM, SERUM 3.3 MMOL/L (3.5-5.3); SGOT(AST) 18 U/L (5-40); SGPT(ALT) 12 U/L (5-65); SODIUM, SERUM 144 MMOL/L (135-148); TOTAL PROTEIN 5.2 G/DL (6.0-8.5)
[2017-02-18 05:09] LABS: A/G RATIO 0.5 (0.7-1.9); ALBUMIN 1.7 G/DL (3.5-5.0); ALKALINE PHOSPHATASE 163 U/L (45-117); BUN (BLOOD UREA NITROGEN) 28 MG/DL (6-23); CALCIUM, SERUM 6.8 MG/DL (8.5-10.4); CREATININE 3.06 MG/DL (0.55-1.02); GFR AFRICAN AMERICAN 18 ML/MIN (>=60); GFR NON AFRICAN AMERICAN 16 ML/MIN (>=60); GLOBULIN 3.5 G/DL (2.5-4.1)
[2017-02-19 04:26] LABS: BASOPHILS 0.9 %; EOSINOPHILS 5.2 %; EOSINOPHILS ABSOLUTE 0.55 10/3/uL (0.0-0.53); HEMATOCRIT 23.2 % (36.0-48.0); HEMOGLOBIN 7.5 g/dL (12.0-16.0); IMMATURE GRANULOCYTES 1.1 %; IMMATURE GRANULOCYTES ABSOLUTE 0.12 10/3/uL (0.0-0.11); LYMPHOCYTES ABSOLUTE 1.47 10/3/uL (0.67-4.30); MEAN CORPUS HGB CONC 32.3 g/dL (32.0-36.0); MEAN CORPUSCULAR HEMOGLOB 31.3 pg (26.0-34.0); MEAN CORPUSCULAR VOLUME 96.7 fL (80-100); MEAN PLATELET VOLUME 9.1 fL (9.2-13.0); MONOCYTES 3.1 %; MONOCYTES ABSOLUTE 0.33 10/3/uL (0.21-1.20); NEUTROPHILS 75.7 %; NEUTROPHILS ABSOLUTE 7.96 10/3/uL (2.02-8.40); PLATELET COUNT 230 10/3/uL (150-400); RBC DISTRIBUTION WIDTH 20.6 % (12.0-16.0); WHITE BLOOD CELLS 10.5 10/3/uL (4.5-10.5)
[2017-02-19 04:28] LABS: MANUAL DIFF NO %
[2017-02-19 04:43] LABS: ALBUMIN 1.6 G/DL (3.5-5.0); ALKALINE PHOSPHATASE 166 U/L (45-117); BUN (BLOOD UREA NITROGEN) 19 MG/DL (6-23); CHLORIDE, SERUM 108 MMOL/L (96-112); CO2 (CARBON DIOXIDE) 25 MMOL/L (24-34); CREATININE 2.38 MG/DL (0.55-1.02); GFR AFRICAN AMERICAN 25 ML/MIN (>=60); GFR NON AFRICAN AMERICAN 22 ML/MIN (>=60); GLUCOSE, SERUM 150 MG/DL (60-99); PHOSPHORUS, SERUM 4.5 MG/DL (2.5-4.5); SGOT(AST) 19 U/L (5-40); SGPT(ALT) 12 U/L (5-65); SODIUM, SERUM 144 MMOL/L (135-148); TOTAL PROTEIN 5.1 G/DL (6.0-8.5)
[2017-02-19 04:44] LABS: CALCIUM, SERUM 6.6 MG/DL (8.5-10.4); DIRECT BILIRUBIN 1.2 MG/DL (0.0-0.4); INDIRECT BILIRUBIN(NOT ORDER) 1.3 MG/DL (0.1-0.9); TOTAL BILIRUBIN 2.5 MG/DL (0-1.2)
[2017-02-20 04:01] LABS: BASOPHILS 0.8 %; BASOPHILS ABSOLUTE 0.08 10/3/uL (0.0-0.16); EOSINOPHILS 5.5 %; EOSINOPHILS ABSOLUTE 0.58 10/3/uL (0.0-0.53); IMMATURE GRANULOCYTES 0.8 %; IMMATURE GRANULOCYTES ABSOLUTE 0.08 10/3/uL (0.0-0.11); LYMPHOCYTES 16.9 %; LYMPHOCYTES ABSOLUTE 1.77 10/3/uL (0.67-4.30); MEAN CORPUSCULAR HEMOGLOB 31.9 pg (26.0-34.0); MEAN CORPUSCULAR VOLUME 96.7 fL (80-100); MEAN PLATELET VOLUME 9.2 fL (9.2-13.0); MONOCYTES 3.9 %; MONOCYTES ABSOLUTE 0.41 10/3/uL (0.21-1.20); NEUTROPHILS 72.1 %; NEUTROPHILS ABSOLUTE 7.55 10/3/uL (2.02-8.40); PLATELET COUNT 203 10/3/uL (150-400); RBC DISTRIBUTION WIDTH 20.8 % (12.0-16.0); WHITE BLOOD CELLS 10.5 10/3/uL (4.5-10.5)
[2017-02-20 04:02] LABS: CHLORIDE, SERUM 109 MMOL/L (96-112); CO2 (CARBON DIOXIDE) 25 MMOL/L (24-34); DIRECT BILIRUBIN 1.3 MG/DL (0.0-0.4); GLUCOSE, SERUM 141 MG/DL (60-99); INDIRECT BILIRUBIN(NOT ORDER) 1.1 MG/DL (0.1-0.9); POTASSIUM, SERUM 3.3 MMOL/L (3.5-5.3); SGOT(AST) 15 U/L (5-40); SGPT(ALT) 9 U/L (5-65); SODIUM, SERUM 144 MMOL/L (135-148); TOTAL BILIRUBIN 2.4 MG/DL (0-1.2); TOTAL PROTEIN 5.1 G/DL (6.0-8.5)
[2017-02-20 04:03] LABS: ALKALINE PHOSPHATASE 153 U/L (45-117); BUN (BLOOD UREA NITROGEN) 23 MG/DL (6-23); CALCIUM, SERUM 6.8 MG/DL (8.5-10.4); CREATININE 3.07 MG/DL (0.55-1.02); GFR AFRICAN AMERICAN 18 ML/MIN (>=60); GFR NON AFRICAN AMERICAN 16 ML/MIN (>=60); PHOSPHORUS, SERUM 5.7 MG/DL (2.5-4.5)
[2017-02-20 04:07] LABS: HEMATOCRIT 20.3 % (36.0-48.0); HEMOGLOBIN 6.7 g/dL (12.0-16.0)
[2017-02-20 04:08] LABS: MANUAL DIFF NO %
[2017-02-21 04:38] LABS: BASOPHILS 0.6 %; BASOPHILS ABSOLUTE 0.06 10/3/uL (0.0-0.16); EOSINOPHILS 1.9 %; EOSINOPHILS ABSOLUTE 0.19 10/3/uL (0.0-0.53); IMMATURE GRANULOCYTES 0.8 %; IMMATURE GRANULOCYTES ABSOLUTE 0.08 10/3/uL (0.0-0.11); LYMPHOCYTES 9.3 %; LYMPHOCYTES ABSOLUTE 0.91 10/3/uL (0.67-4.30); MEAN CORPUS HGB CONC 33.7 g/dL (32.0-36.0); MEAN CORPUSCULAR HEMOGLOB 31.3 pg (26.0-34.0); MEAN PLATELET VOLUME 8.8 fL (9.2-13.0); MONOCYTES 3.2 %; MONOCYTES ABSOLUTE 0.31 10/3/uL (0.21-1.20); NEUTROPHILS 84.2 %; NEUTROPHILS ABSOLUTE 8.26 10/3/uL (2.02-8.40); RBC DISTRIBUTION WIDTH 20.5 % (12.0-16.0); RED CELL COUNT 2.17 10/6/uL (4.0-5.6); WHITE BLOOD CELLS 9.8 10/3/uL (4.5-10.5)
[2017-02-21 04:42] LABS: HEMATOCRIT 20.2 % (36.0-48.0); HEMOGLOBIN 6.8 g/dL (12.0-16.0); MEAN CORPUSCULAR VOLUME 93.1 fL (80-100); PLATELET COUNT 136 10/3/uL (150-400)
[2017-02-21 04:45] LABS: MANUAL DIFF NO %
[2017-02-21 04:53] LABS: CHLORIDE, SERUM 107 MMOL/L (96-112); CO2 (CARBON DIOXIDE) 27 MMOL/L (24-34); GLUCOSE, SERUM 137 MG/DL (60-99); SODIUM, SERUM 143 MMOL/L (135-148)
[2017-02-21 04:55] LABS: BUN (BLOOD UREA NITROGEN) 16 MG/DL (6-23); CALCIUM, SERUM 6.9 MG/DL (8.5-10.4); CREATININE 1.95 MG/DL (0.55-1.02); GFR AFRICAN AMERICAN 32 ML/MIN (>=60); GFR NON AFRICAN AMERICAN 27 ML/MIN (>=60); PHOSPHORUS, SERUM 4.1 MG/DL (2.5-4.5); POTASSIUM, SERUM 4.2 MMOL/L (3.5-5.3)
[2017-02-21 22:46] LABS: HEMATOCRIT 26.8 % (36.0-48.0); HEMOGLOBIN 8.8 g/dL (12.0-16.0)
[2017-02-22 04:37] LABS: BASOPHILS 0.7 %; BASOPHILS ABSOLUTE 0.07 10/3/uL (0.0-0.16); EOSINOPHILS 3.7 %; EOSINOPHILS ABSOLUTE 0.39 10/3/uL (0.0-0.53); HEMATOCRIT 25.1 % (36.0-48.0); HEMOGLOBIN 8.3 g/dL (12.0-16.0); IMMATURE GRANULOCYTES ABSOLUTE 0.11 10/3/uL (0.0-0.11); LYMPHOCYTES 12.9 %; LYMPHOCYTES ABSOLUTE 1.37 10/3/uL (0.67-4.30); MEAN CORPUS HGB CONC 33.1 g/dL (32.0-36.0); MEAN CORPUSCULAR VOLUME 93.7 fL (80-100); MEAN PLATELET VOLUME 9.1 fL (9.2-13.0); MONOCYTES ABSOLUTE 0.32 10/3/uL (0.21-1.20); NEUTROPHILS 78.7 %; NEUTROPHILS ABSOLUTE 8.34 10/3/uL (2.02-8.40); PLATELET COUNT 159 10/3/uL (150-400); RBC DISTRIBUTION WIDTH 19.8 % (12.0-16.0); WHITE BLOOD CELLS 10.6 10/3/uL (4.5-10.5)
[2017-02-22 04:44] LABS: MANUAL DIFF NO %; RED CELL COUNT 2.68 10/6/uL (4.0-5.6)
[2017-02-22 07:30] LABS: BAND NEUTROPHILS 10 %; LYMPHOCYTES 3 %; LYMPHOCYTES ABSOLUTE (CALC) 0.32 10/3/uL (0.67-4.30); MONOCYTES 2 %; MONOCYTES ABSOLUTE (CALC) 0.21 10/3/uL (0.21-1.20); NEUTROPHILS ABSOLUTE (CALC) 10.07 10/3/uL (2.02-8.40); PLATELET ESTIMATE SLT DEC (ADEQUATE); RBC MORPHOLOGY NORM (NORMAL); SEGMENTED NEUTROPHIL (0) 85 %; TOTAL NUCLEATED CELLS 100
[2017-02-22 13:37] LABS: HEMATOCRIT 25.6 % (36.0-48.0); HEMOGLOBIN 8.3 g/dL (12.0-16.0)
[2017-02-22 15:25] LABS: ALBUMIN 1.7 G/DL (3.5-5.0); CHLORIDE, SERUM 104 MMOL/L (96-112); CO2 (CARBON DIOXIDE) 25 MMOL/L (24-34); POTASSIUM, SERUM 4.5 MMOL/L (3.5-5.3); SODIUM, SERUM 141 MMOL/L (135-148)
[2017-02-22 15:26] LABS: BUN (BLOOD UREA NITROGEN) 29 MG/DL (6-23); CALCIUM, SERUM 6.9 MG/DL (8.5-10.4); CREATININE 2.86 MG/DL (0.55-1.02); GFR AFRICAN AMERICAN 20 ML/MIN (>=60); GFR NON AFRICAN AMERICAN 17 ML/MIN (>=60); GLUCOSE, SERUM 176 MG/DL (60-99); PHOSPHORUS, SERUM 5.8 MG/DL (2.5-4.5)
[2017-02-22 21:48] LABS: HEMATOCRIT 25.7 % (36.0-48.0); HEMOGLOBIN 8.3 g/dL (12.0-16.0)
[2017-02-23 05:57] LABS: BASOPHILS 0.6 %; BASOPHILS ABSOLUTE 0.05 10/3/uL (0.0-0.16); EOSINOPHILS 2.6 %; EOSINOPHILS ABSOLUTE 0.23 10/3/uL (0.0-0.53); HEMATOCRIT 24.9 % (36.0-48.0); HEMOGLOBIN 8.1 g/dL (12.0-16.0); IMMATURE GRANULOCYTES 0.4 %; IMMATURE GRANULOCYTES ABSOLUTE 0.04 10/3/uL (0.0-0.11); LYMPHOCYTES 12.5 %; LYMPHOCYTES ABSOLUTE 1.12 10/3/uL (0.67-4.30); MEAN CORPUS HGB CONC 32.5 g/dL (32.0-36.0); MEAN CORPUSCULAR VOLUME 95.4 fL (80-100); MEAN PLATELET VOLUME 9.2 fL (9.2-13.0); MONOCYTES 2.8 %; MONOCYTES ABSOLUTE 0.25 10/3/uL (0.21-1.20); NEUTROPHILS 81.1 %; NEUTROPHILS ABSOLUTE 7.25 10/3/uL (2.02-8.40); PLATELET COUNT 131 10/3/uL (150-400); RBC DISTRIBUTION WIDTH 19.9 % (12.0-16.0); RED CELL COUNT 2.61 10/6/uL (4.0-5.6); WHITE BLOOD CELLS 8.9 10/3/uL (4.5-10.5)
[2017-02-23 05:58] LABS: MANUAL DIFF NO %
[2017-02-23 06:13] LABS: ALBUMIN 1.9 G/DL (3.5-5.0); CALCIUM, SERUM 7.5 MG/DL (8.5-10.4); CHLORIDE, SERUM 107 MMOL/L (96-112); CO2 (CARBON DIOXIDE) 29 MMOL/L (24-34); POTASSIUM, SERUM 3.8 MMOL/L (3.5-5.3); SODIUM, SERUM 145 MMOL/L (135-148)
[2017-02-23 06:14] LABS: BUN (BLOOD UREA NITROGEN) 17 MG/DL (6-23); CREATININE 1.88 MG/DL (0.55-1.02); GFR AFRICAN AMERICAN 33 ML/MIN (>=60); GFR NON AFRICAN AMERICAN 29 ML/MIN (>=60); GLUCOSE, SERUM 136 MG/DL (60-99); PHOSPHORUS, SERUM 3.7 MG/DL (2.5-4.5)
[2017-02-24 03:44] LABS: BASOPHILS 0.8 %; BASOPHILS ABSOLUTE 0.08 10/3/uL (0.0-0.16); EOSINOPHILS 2.9 %; HEMATOCRIT 24.8 % (36.0-48.0); IMMATURE GRANULOCYTES 0.6 %; IMMATURE GRANULOCYTES ABSOLUTE 0.06 10/3/uL (0.0-0.11); LYMPHOCYTES 13.6 %; MANUAL DIFF NO %; MEAN CORPUS HGB CONC 32.3 g/dL (32.0-36.0); MEAN CORPUSCULAR HEMOGLOB 30.9 pg (26.0-34.0); MEAN CORPUSCULAR VOLUME 95.8 fL (80-100); MEAN PLATELET VOLUME 9.6 fL (9.2-13.0); MONOCYTES 3.8 %; MONOCYTES ABSOLUTE 0.39 10/3/uL (0.21-1.20); NEUTROPHILS 78.3 %; NEUTROPHILS ABSOLUTE 8.05 10/3/uL (2.02-8.40); PLATELET COUNT 153 10/3/uL (150-400); RBC DISTRIBUTION WIDTH 19.9 % (12.0-16.0); RED CELL COUNT 2.59 10/6/uL (4.0-5.6); WHITE BLOOD CELLS 10.3 10/3/uL (4.5-10.5)
[2017-02-24 03:55] LABS: ALBUMIN 1.8 G/DL (3.5-5.0); CALCIUM, SERUM 7.8 MG/DL (8.5-10.4); CHLORIDE, SERUM 105 MMOL/L (96-112); CO2 (CARBON DIOXIDE) 29 MMOL/L (24-34); GFR AFRICAN AMERICAN 24 ML/MIN (>=60); GFR NON AFRICAN AMERICAN 21 ML/MIN (>=60); GLUCOSE, SERUM 140 MG/DL (60-99); PHOSPHORUS, SERUM 4.4 MG/DL (2.5-4.5); POTASSIUM, SERUM 4.5 MMOL/L (3.5-5.3); SODIUM, SERUM 142 MMOL/L (135-148)
[2017-02-24 03:56] LABS: BUN (BLOOD UREA NITROGEN) 25 MG/DL (6-23); CREATININE 2.43 MG/DL (0.55-1.02)
[2017-02-24 12:24] LABS: CPK 9 U/L (0-200); TROPONIN I <0.02 NG/ML (<0.05)
[2017-02-24 12:25] LABS: CK-MB 0.8 NG/ML
[2017-02-25 08:41] LABS: BASOPHILS 0.5 %; BASOPHILS ABSOLUTE 0.07 10/3/uL (0.0-0.16); EOSINOPHILS 2.1 %; HEMATOCRIT 24.9 % (36.0-48.0); HEMOGLOBIN 8.2 g/dL (12.0-16.0); IMMATURE GRANULOCYTES 0.5 %; IMMATURE GRANULOCYTES ABSOLUTE 0.07 10/3/uL (0.0-0.11); LYMPHOCYTES 9.8 %; LYMPHOCYTES ABSOLUTE 1.38 10/3/uL (0.67-4.30); MEAN CORPUS HGB CONC 32.9 g/dL (32.0-36.0); MEAN CORPUSCULAR HEMOGLOB 31.2 pg (26.0-34.0); MEAN CORPUSCULAR VOLUME 94.7 fL (80-100); MEAN PLATELET VOLUME 9.7 fL (9.2-13.0); MONOCYTES 3.3 %; MONOCYTES ABSOLUTE 0.46 10/3/uL (0.21-1.20); NEUTROPHILS 83.8 %; PLATELET COUNT 145 10/3/uL (150-400); RBC DISTRIBUTION WIDTH 20.1 % (12.0-16.0); RED CELL COUNT 2.63 10/6/uL (4.0-5.6); WHITE BLOOD CELLS 14.1 10/3/uL (4.5-10.5)
[2017-02-25 08:42] LABS: MANUAL DIFF NO %
[2017-02-25 08:52] LABS: ALBUMIN 1.7 G/DL (3.5-5.0); CALCIUM, SERUM 7.7 MG/DL (8.5-10.4); CHLORIDE, SERUM 104 MMOL/L (96-112); CO2 (CARBON DIOXIDE) 26 MMOL/L (24-34); GFR AFRICAN AMERICAN 19 ML/MIN (>=60); GFR NON AFRICAN AMERICAN 17 ML/MIN (>=60); GLUCOSE, SERUM 125 MG/DL (60-99); PHOSPHORUS, SERUM 5.1 MG/DL (2.5-4.5); POTASSIUM, SERUM 4.5 MMOL/L (3.5-5.3); SODIUM, SERUM 142 MMOL/L (135-148)
[2017-02-25 08:59] LABS: BUN (BLOOD UREA NITROGEN) 37 MG/DL (6-23); CREATININE 2.96 MG/DL (0.55-1.02)
[2017-02-26 09:02] LABS: BASOPHILS 0.7 %; BASOPHILS ABSOLUTE 0.06 10/3/uL (0.0-0.16); EOSINOPHILS 2.8 %; EOSINOPHILS ABSOLUTE 0.24 10/3/uL (0.0-0.53); HEMATOCRIT 23.4 % (36.0-48.0); HEMOGLOBIN 7.4 g/dL (12.0-16.0); IMMATURE GRANULOCYTES 0.7 %; IMMATURE GRANULOCYTES ABSOLUTE 0.06 10/3/uL (0.0-0.11); LYMPHOCYTES 14.5 %; LYMPHOCYTES ABSOLUTE 1.26 10/3/uL (0.67-4.30); MANUAL DIFF NO %; MEAN CORPUS HGB CONC 31.6 g/dL (32.0-36.0); MEAN CORPUSCULAR HEMOGLOB 30.5 pg (26.0-34.0); MEAN CORPUSCULAR VOLUME 96.3 fL (80-100); MEAN PLATELET VOLUME 9.7 fL (9.2-13.0); MONOCYTES ABSOLUTE 0.35 10/3/uL (0.21-1.20); NEUTROPHILS 77.3 %; NEUTROPHILS ABSOLUTE 6.74 10/3/uL (2.02-8.40); PLATELET COUNT 144 10/3/uL (150-400); RBC DISTRIBUTION WIDTH 20.2 % (12.0-16.0); RED CELL COUNT 2.43 10/6/uL (4.0-5.6); WHITE BLOOD CELLS 8.7 10/3/uL (4.5-10.5)
[2017-02-26 09:16] LABS: ALBUMIN 2.1 G/DL (3.5-5.0); BUN (BLOOD UREA NITROGEN) 23 MG/DL (6-23); CHLORIDE, SERUM 106 MMOL/L (96-112); CO2 (CARBON DIOXIDE) 29 MMOL/L (24-34); CREATININE 2.11 MG/DL (0.55-1.02); GFR AFRICAN AMERICAN 29 ML/MIN (>=60); GFR NON AFRICAN AMERICAN 25 ML/MIN (>=60); GLUCOSE, SERUM 143 MG/DL (60-99); PHOSPHORUS, SERUM 2.8 MG/DL (2.5-4.5); POTASSIUM, SERUM 3.6 MMOL/L (3.5-5.3); SODIUM, SERUM 143 MMOL/L (135-148)
[2017-02-27 14:53] LABS: BASOPHILS 0.7 %; BASOPHILS ABSOLUTE 0.07 10/3/uL (0.0-0.16); EOSINOPHILS 2.3 %; EOSINOPHILS ABSOLUTE 0.22 10/3/uL (0.0-0.53); IMMATURE GRANULOCYTES 0.9 %; IMMATURE GRANULOCYTES ABSOLUTE 0.09 10/3/uL (0.0-0.11); LYMPHOCYTES 14.7 %; LYMPHOCYTES ABSOLUTE 1.41 10/3/uL (0.67-4.30); MEAN CORPUS HGB CONC 31.8 g/dL (32.0-36.0); MEAN CORPUSCULAR HEMOGLOB 30.5 pg (26.0-34.0); MEAN PLATELET VOLUME 9.6 fL (9.2-13.0); MONOCYTES 4.1 %; MONOCYTES ABSOLUTE 0.39 10/3/uL (0.21-1.20); NEUTROPHILS 77.3 %; NEUTROPHILS ABSOLUTE 7.44 10/3/uL (2.02-8.40); PLATELET COUNT 142 10/3/uL (150-400); RBC DISTRIBUTION WIDTH 20.3 % (12.0-16.0); RED CELL COUNT 2.26 10/6/uL (4.0-5.6); WHITE BLOOD CELLS 9.6 10/3/uL (4.5-10.5)
[2017-02-27 14:54] LABS: HEMATOCRIT 21.7 % (36.0-48.0); HEMOGLOBIN 6.9 g/dL (12.0-16.0)
[2017-02-27 14:56] LABS: MANUAL DIFF NO %
[2017-02-27 15:08] LABS: ALBUMIN 2.1 G/DL (3.5-5.0); BUN (BLOOD UREA NITROGEN) 20 MG/DL (6-23); CALCIUM, SERUM 7.8 MG/DL (8.5-10.4); CHLORIDE, SERUM 105 MMOL/L (96-112); CO2 (CARBON DIOXIDE) 31 MMOL/L (24-34); CREATININE 1.99 MG/DL (0.55-1.02); GFR AFRICAN AMERICAN 31 ML/MIN (>=60); GFR NON AFRICAN AMERICAN 27 ML/MIN (>=60); GLUCOSE, SERUM 144 MG/DL (60-99); PHOSPHORUS, SERUM 3.2 MG/DL (2.5-4.5); POTASSIUM, SERUM 4.1 MMOL/L (3.5-5.3); SODIUM, SERUM 142 MMOL/L (135-148)
== END 2017-03-01 14:13 | disposition hospice, inpatient (51) | DRG 371 ==
LOC: ER 17:52 → 2SO 21:05 → CCU 02-11 21:46 → IMCU 02-19 22:05 → 2SO 02-23 13:39
PROVIDERS: Emergency Medicine; Internal Medicine Gastroenterology; Internal Medicine Nephrology; Nurse Practitioner; Nurse Practitioner Family; Registered Nurse
PROC: 0DB68ZX Excision of Stomach, Via Natural or Artificial Opening Endoscopic, Diagnostic (ICD-10-PCS; principal; 2017-02-07 15:52)
PROC: 5A1D60Z (ICD-10-PCS; 2017-02-08)
PROC: 0DJD8ZZ Inspection of Lower Intestinal Tract, Via Natural or Artificial Opening Endoscopic (ICD-10-PCS; 2017-02-09)
PROC: 30233N1 Transfusion of Nonautologous Red Blood Cells into Peripheral Vein, Percutaneous Approach (ICD-10-PCS; 2017-02-11)
PROC: 02HV33Z Insertion of Infusion Device into Superior Vena Cava, Percutaneous Approach (ICD-10-PCS; 2017-02-12)
PROC: 4A02X4A Measurement of Cardiac Electrical Activity, Guidance, External Approach (ICD-10-PCS; 2017-02-12)
PROC: 02HV33Z Insertion of Infusion Device into Superior Vena Cava, Percutaneous Approach (ICD-10-PCS; 2017-02-14)
PROC: 4A02X4A Measurement of Cardiac Electrical Activity, Guidance, External Approach (ICD-10-PCS; 2017-02-14)
DX: A04.7 Enterocolitis due to Clostridium difficile (principal); N18.6 End stage renal disease; E43 Unspecified severe protein-calorie malnutrition; K83.0 Cholangitis; I95.89 Other hypotension; I12.0 Hypertensive chronic kidney disease with stage 5 chronic kidney disease or end stage renal disease; E87.70 Fluid overload, unspecified; S52.91XA Unspecified fracture of right forearm, initial encounter for closed fracture; E11.22 Type 2 diabetes mellitus with diabetic chronic kidney disease; E66.01 Morbid (severe) obesity due to excess calories; E11.40 Type 2 diabetes mellitus with diabetic neuropathy, unspecified; E87.6 Hypokalemia; I73.9 Peripheral vascular disease, unspecified; K29.70 Gastritis, unspecified, without bleeding; Z51.5 Encounter for palliative care; K64.8 Other hemorrhoids; R19.5 Other fecal abnormalities; D64.9 Anemia, unspecified; G47.33 Obstructive sleep apnea (adult) (pediatric); E03.9 Hypothyroidism, unspecified; G89.4 Chronic pain syndrome; F41.9 Anxiety disorder, unspecified; K21.9 Gastro-esophageal reflux disease without esophagitis; E78.5 Hyperlipidemia, unspecified; D50.9 Iron deficiency anemia, unspecified; Z99.2 Dependence on renal dialysis; Z79.4 Long term (current) use of insulin; Z89.612 Acquired absence of left leg above knee; Z89.611 Acquired absence of right leg above knee
CPT/HCPCS: 36415; 36430; 36569; 71010; 73060-RT; 73090-RT; 74176; 74181; 76705; 80048; 80053; 80069; 80074; 80076; 82103; 82272; 82330; 82533; 82550; 82553; 82962; 83690; 83735; 83880; 84100; 84132; 84439; 84484; 85014; 85018; 85025; 85610; 85730; 86039; 86255; 86850; 86900; 86901; 86920; 87040; 87045; 87046; 87046-59; 87328; 87329; 87493; 87493-59; 87641; 87899; 87899-59; 88305; 88342; 89055; 93005; 93971; 93975; 99285; A9270-GY; C1751; C8929; C9113; G0257; J0610; J0834; J0885; J2150; J2370; J2405; J3430; P9016; P9047; Q9957